=== PATIENT | female | born 1980 | race Caucasian/White ===

== ENCOUNTER → 2016-05-24 | Outpatient (CLI) | payer OTHER ==
[~2016-05-24] MED LIST: ADVIN25050 INH; BIOT1CAP8 PO; CETI10TA84 PO; CHOL1000 PO; CICL80AE INH; EPP3/2 IM; MOME100A INH; PRENTAB26 PO; TRAV0.00 OPB; VALA1TAB2 PO; VNTHFA/IN INH; WLLSR/150 PO
--- NOTE | 2016-05-24 08:45 | DIAGNOSTIC IMAGING REPORT ---
RIGHT KNEE 4 OR MORE CLINICAL HISTORY: RIGHT KNEE PAIN Right pain COMPARISON: None. DISCUSSION: The bones and joint spaces appear intact. There is no evidence of fracture, dislocation or bony disease. There is no evidence for soft tissue swelling. IMPRESSION: Negative study. Electronically signed by: Jn Cuevas M.D. 05/24/2016 8:44 AM Dictated Date/Time: 05/24/2016 8:43 AM
== END | disposition home or self-care (01) ==
LOC: C.RDSM 07:55
PROVIDERS: ATTEND Internal Medicine
DX: M25.561 Pain in right knee (principal)

== ENCOUNTER → 2016-06-08 | Outpatient (CLI) | payer OTHER ==
--- NOTE | 2016-06-08 12:10 | DIAGNOSTIC IMAGING REPORT ---
MRI right knee RIGHT LOWER EXT JOINT WITHOUT CLINICAL HISTORY: PAIN IN THE RIGHT KNEE Right TECHNIQUE: MRI multi axial acquisition COMPARISON STUDY: None FINDINGS: Signal characteristics the osseous structures are in general unremarkable. There is small amount of subchondral edema inferior aspect of the patella. There is a very small osteochondral defect measuring 3 mm mid lateral femoral condylar articular surface. There is a high-grade partial tear anterior cruciate ligament. Posterior cruciate ligament is intact. There is a small joint effusion. There are findings of moderate chondromalacia patella of the inferior patellar articulating surface. Medial and lateral patellar retinaculum are intact. Medial and lateral menisci are unremarkable in overall configuration. Bilaterally with structures are intact. IMPRESSION: 1. Mild chondromalacia patella 2. High-grade partial tear anterior cruciate ligament. 3. Small 3 mm osteochondral defect mid lateral femoral condyle. Electronically signed by: Jn Cuevas M.D. 06/08/2016 12:09 PM Dictated Date/Time: 06/08/2016 12:01 PM
== END | disposition home or self-care (01) ==
LOC: C.MRI 11:09
PROVIDERS: ATTEND Internal Medicine
DX: S83.511A Sprain of anterior cruciate ligament of right knee, initial encounter (principal); X58.XXXA Exposure to other specified factors, initial encounter

== ENCOUNTER → 2016-07-19 | Outpatient (CLI) | payer OTHER ==
[~2016-07-19] MED LIST changes: -ADVIN25050 INH; -PRENTAB26 PO; -WLLSR/150 PO
--- NOTE | 2016-07-19 09:00 | DIAGNOSTIC IMAGING REPORT ---
RIGHT FOOT 3 VIEWS CLINICAL HISTORY: Right foot pain. FINDINGS: 3 views of the right foot are compared to study dated 10/13/2015. The skeletal structures are osteopenic. There are postoperative changes from osteotomy in the distal fifth metatarsal head with a single cortical screw in place. A cortical screw is also present in the second metatarsal head. There is postoperative change from fusion at the first tarsometatarsal joint with [address] Bony fusion appears complete. No acute fracture is seen. Chronic posttraumatic deformity is again seen at the base of the first proximal phalanx. Mild cortical irregularity persists. The overlying soft tissues are within normal limits. IMPRESSION: 1. No acute bony abnormality is seen. 2. Chronic postoperative and posttraumatic change as above. Electronically signed by: Ozzie Jackson M.D. 07/19/2016 8:58 AM Dictated Date/Time: 07/19/2016 8:55 AM
== END | disposition home or self-care (01) ==
LOC: C.RDSM 14:31
PROVIDERS: ATTEND Physician Assistant
DX: Z96.9 Presence of functional implant, unspecified (principal)

== ENCOUNTER → 2016-08-17 | Day surgery (SDC) | payer OTHER ==
[2016-07-09 11:13] VITALS: Ht 167.6 cm; Wt 64.5 kg
[~2016-08-17] VITALS: Ht 167.6 cm; Wt 64.5 kg
[~2016-08-17] MED LIST changes: +ATROPINE SULFATE 0.1 MG/ML 5ML SYR IV PRN; +BUPIVACAINE/EPINEPHRINE 0.25% 1:200,000 30 ML VIAL ONE; +BUPIVACAINE/EPINEPHRINE 0.5% MPF 1:200,000 30 ML VIAL ONE; +CEFAZOLIN 2000 MG/60 ML D5W IV SCH; +CEFTRIAXONE SOD 1 GM VIAL ONE; +CEFTRIAXONE SOD 2 GM VIAL IV ONE; +DEXAMETHASONE SOD INJ 4 MG/ML VIAL ONE; +EpHEDrine SULFATE INJ 50 MG/ML AMP IV PRN; +FENTANYL CITRATE INJ 50 MCG/1 ML 2 ML VIAL ONE; +HYDROmorphone INJ 0.5 MG/0.5 ML SYR ONE; +KETOROLAC TROMETHAMINE 30 MG/ML VIAL IV. PRN; +LACTATED RINGER'S 1000ML 1,000 ML IV SCH; +LIDOCAINE HCL 1% MPF 2 ML VIAL ONE; +LIDOCAINE HCL 2% 2 ML VIAL (20MG/ML) ONE; +MIDAZOLAM HCL 1 MG/ML 2ML VIAL ONE; +ONDANSETRON INJ 2 MG/ML 2 ML VIAL IV PRN; +ONDANSETRON INJ 2 MG/ML 2 ML VIAL ONE; +OXYCODONE/ACETAMINOPHEN 5-325 TAB PO PRN; +PROPOFOL IV EMULSION 10 MG/ML 20 ML VIAL IV ONE; +SCOPOLAMINE 1.5 MG TDSY TD ONE; +SODIUM CHLORIDE 0.9% 1000ML 1,000 ML IV SCH; +TRAMADOL HCL 50 MG TAB PO PRN
--- NOTE | 2016-08-17 06:46 | History & Physical Bridge Note ---
H&P Re-Evaluation Bridge Note: I have examined the patient, reviewed the History & Physical and in the interval since the performance of the History & Physical I have noted the following changes of clinical significance: No changes noted
--- NOTE | 2016-08-17 06:48 | Discharge Instructions ---
Discharge Instructions Date of Service Aug 17, 2016. Visit Reason for Visit: Right Knee Acl Tear With Medial Meniscus Tear Discharge Discharge Diagnosis / Problem: same Discharge Goals Goal(s): Decrease discomfort, Improve function, Increase independence, Improve disease control Medications Stopped Medications Name(s): na Restart Stopped Medication(s): resume all meds as directed Activity Recommendations Activity Limitations: as noted below Lifting Limitations: until after follow-up appointment Exercise/Sports Limitations: until after follow-up appointment May Resume Sexual Activity: when tolerated Shower/Bathe: keep incision dry Driving or Machine Use: Weightbearing Status: Right weightbearing Anesthesia . Post Anesthesia Instructions: If you have had General Anesthesia or IV Sedation: * Do not drive today. * Resume driving when surgeon permits. * Do not make important decisions or sign legal documents today. * Call surgeon for: 1. Temperature elevations greater than 101 degrees F. 2. Uncontrollable pain. 3. Excessive bleeding. 4. Persistent nausea and vomiting. 5. Medication intolerance (nausea, vomiting or rash). * For nausea and vomiting use only clear liquids such as: tea, soda, bouillon until nausea subsides, then gradually increase diet as tolerated. * If you have any concerns or questions, call your surgeon's office. If physician is unavailable and it is an emergency, call 911 or go to the nearest emergency room. . Instructions / Follow-Up Instructions / Follow-Up The following instructions are a useful guide to questions you may have after your Anterior Cruciate Ligament Reconstruction surgery. If you have any questions contact the office at . ACTIVITY RECOMMENDATIONS: * Heavy manual labor is not permitted until 4-6 months after surgery. * Sports are not permitted until 6-9 months after surgery. * Return to activity is individualized. * DRIVING: Driving is not permitted until 3-4 weeks after surgery at a minimum. Please ask your doctor when it is safe to resume driving. If you have an automatic vehicle and your left leg has been operated on, then you may begin driving as soon as you are comfortable and can drive safely. * BATHING: You may shower or sponge-bathe immediately after surgery. The dressing will need to be covered with a plastic bag or plastic wrap until the dressing is changed on the fourth or fifth day after surgery. Once the dressing has been changed on the fourth or fifth day after surgery, you may shower and get the incision wet. * Wash with regular soap and water. * Do not bathe (submerge the incision), soak, swim or use a hot tub until the incision is completely healed over with normal skin and the doctor has given the OK to proceed. * There is no need to apply any ointments, powders or salves to your incision. * Do not apply alcohol or hydrogen peroxide directly to the incision. Diluted peroxide (50:50 mixture with sterile saline) may be used to clean dried blood from around the incision area. WORK/SCHOOL: * You may return to sedentary work or school when you are feeling comfortable. This is usually 3-7 days after surgery. * Expect increased discomfort with increased activity. Continue to elevate and ice the leg as much as possible. DIET: * Resume previous diet. MEDICATIONS: * You will have a prescription for pain medication and an anti-inflammatory medication after surgery. Use the pain pills for severe pain and the anti-inflammatory for less severe pain. * Once the pain pills have run out, try to use the anti-inflammatory. If this is not effective then contact the office for assistance. * The pain medication may cause nausea, constipation and sleepiness. You should see how they affect you before driving or similar activity. * The anti-inflammatory may cause stomach upset and bleeding. If this occurs, let your doctor know immediately . * Some patients may need blood clot prevention. This can be done with either a pill or a simple shot. Your doctor will advise you on when to begin these medications and how to take them. * Do not take aspirin or other anti-inflammatory products (i.e. Advil or Aleve ) if taking blood thinner medication. * Take a stool softener like Colace or a stimulant like Senokot to prevent constipation. SPECIAL CARE INSTRUCTIONS: The following instructions are a useful guide to questions you may have after your surgery. If you have any questions contact the office at . ICE: * You have the option of an ice cooler, gel packs or ice bags. * If you have an ice cooler, refer to the instructions for that device. * If you do not have an ice cooler, then you will need to use ice bags or gel packs. * Do not apply ice directly to the skin. * Use a thin dressing or stockinet between the skin and ice bag. * Apply ice for 20-30 minutes and repeat every 2-4 hours. This is especially important for the first 7-10 days after surgery. * Once the pain improves, use ice as needed. * The ice cooler can be used continuously. ELEVATION: * Keep your leg elevated at or above the level of your heart as much as possible. * Expect some increased discomfort and swelling if you are standing for any length of time. * When lying down, avoid placing anything under your knee. Rather, prop your leg up by placing several pillows under your heel or calf. DRESSING: * Your dressing will be changed at your first therapy appointment approximately 4-5 days after surgery. * Band-Aids, tape strips or gauze may be applied. You may then change your dressing daily. * Always wash your hands prior to touching the incision area. * Reapply dressing followed by the Hector wrap or Tubi-manager neonatal stockinet, ice cooling pad and then the brace. * Once the stitches are removed, you may leave the wound open to air or cover with an Hector Bandage or Tubi-manager neonatal stockinet. * If you have been given a white elastic stocking (SHRADDHA hose), wear as much as possible for the first 1-3 weeks depending on swelling. * Expect some bloody drainage for the first few days after surgery. * Leave the tape strips in place for 5-7 days. * Band-Aids and gauze may be changed daily. CRUTCHES: * You will need to use crutches after surgery. * Until your first doctor's appointment, you must use your crutches at all times when walking and should put no more than 50% of your normal weight on the surgical leg. * After your first doctor's appointment, you may gradually progress to full weight bearing and discontinue crutches as tolerated under the guidance of your therapist. * If you have had a microfracture procedure done, you may be advised to be non- weight bearing for up to 6 weeks. BRACE: * After surgery, you will be placed into a range of motion brace locked with your leg straight. This brace is to be worn at all times when walking (even with the crutches) and sleeping until your first doctors appointment. * The brace may be removed for therapy. * After your first therapy appointment, your therapist will open the brace to allow bending of the knee once your muscles are working better. * Until your first doctor's appointment, you should sleep with your brace locked with your knee fully straight. * If you have chosen to use a functional ACL brace then this brace will be supplied about 2-3 months after your surgery. During that time, you will attend therapy 2- 3 times per week. You will also need to do daily exercises for range of motion and strength as instructed. PROBLEMS/QUESTIONS: * If you have any problems such as severe pain, numbness, tingling or high fevers or if you have any questions, please contact the office at [phone]. * It is not uncommon to have some numbness and tingling after the surgery especially if you have had a nerve block done. This should gradually improve over the first 1- 2 days. If this persists longer or worsens then contact the office. FOLLOW UP VISIT: * If not already scheduled, please call the office at to schedule follow-up appointments for approximately 10 days and one month after surgery followed by monthly appointments thereafter. Diet Recommendations Recommended Home Diet: no limitations, resume previous diet Procedures Procedures Performed: see op note Pending Studies Studies pending at discharge: no Medical Emergencies . Who to Call and When: Medical Emergencies: If at any time you feel your situation is an emergency, please call 911 immediately. . Non-Emergent Contact Non-Emergency issues call your: Specialist Call Non-Emergent contact if: temperature is above 101.5 . . "Provider Documentation" section prepared by Huber Collier. .
--- NOTE | 2016-08-17 09:51 | [facility] Post Operative Brief Note ---
Immediate Operative Summary Operative Date Aug 17, 2016. Pre-Operative Diagnosis Right Knee ACL Tear with Medial Meniscus Tear Post-Operative Diagnosis Same Procedure(s) Performed Right Knee Arthroscopic Anterior Cruciate Ligament Reconstruction With Patellar Tendon Autograft, Debridement of the Lateral Femoral Condyle, Microfracture, Lateral Meniscus Repair, Loose Body Removal, Exam Under Anesthesia Surgeon Dr Collier Buckram Sewer Surgeon(s) Laura Covington PAZhanna Estimated Blood Loss Trace Findings see op note Fluids (cc crystalloids) 1200cc Specimens None Drains none Anesthesia LMA/block Complication(s) None Disposition Recovery Room / PACU
--- NOTE | 2016-08-17 10:27 | OPERATIVE REPORT ---
DATE OF OPERATION: 08/17/2016 SURGEON: Huber Collier MD METHODS AND PROCEDURES ANALYST: Franklin Jurado MD SECOND METHODS AND PROCEDURES ANALYST: Calixto Torres PA-C PREOPERATIVE DIAGNOSES: Anterior cruciate ligament insufficient right knee with lateral meniscal tear and articular disease. POSTOPERATIVE DIAGNOSES: Same. OPERATIONS PERFORMED: 1. Exam under anesthesia. 2. Diagnostic arthroscopy. 3. Arthroscopic lateral meniscus repair. 4. Arthroscopic chondroplasty and microfracture of the lateral femoral condyle. 5. Rasping of incomplete medial meniscus tear. 6. Endoscopic ACL reconstruction using central one-third patellar tendon autograft. PERIOPERATIVE SITUATION: Medically cleared female, very active with the knee giving way, recurrent pain, swelling, locking, and catching. Physical exam, x-ray and MRI scan consistent with the above diagnoses. DESCRIPTION OF PROCEDURE: The patient was identified, site verified, consent verified, and 2 grams of Ancef confirmed as being given. The knee was examined revealing clear asymmetry of the Hannah with an endpoint and a pivot glide. There was no effusion. There was slight valgus alignment to the knee. The collateral ligaments were stable. The knee was then prepped and draped in the usual routine fashion. Tourniquet inflated to 275 mmHg after exsanguination of limb with a rubber Esmarch bandage for a total of 90 minutes. The knee was then scoped. The ACL was intact at its distal half, but the proximal half was very incompetent, attached to the PCL on the femur, giving the Hannah positivity with an end point, but increased excursion. It was touched with a shaver and it was clearly fibrous tissue and disappeared. The stump of the ACL was then debrided. The medial meniscus posterior horn was stable. The anterior half had a crease incomplete on its femoral surface, but it was stable to probing. It was rasped. Medial articular surfaces were relatively healthy. The PCL was normal. The notch was trephine in shape and debrided. Lateral compartment had grade 4 thickness area of 1.5 cm squared area, which was debrided down to the bone and then microfractured with a 20 and 45 degree pig. The lateral meniscus had hypermobility. The hiatus was extended from trauma. It was debrided and rasped. There was a small posterior horn tip tear, which was debrided with the shaver. The meniscus was then repaired with 2 all-inside meniscal implants and FasT-Fix sutures. Once that was done, the meniscus was very stable. Once this was all completed, the patellar tendon was harvested through an anterior incision, fashioning bone blocks that were roughly 10 x 25 x 5 on both sides. They were tagged with TightRope on the patella and two #5 Ethibonds on the tibia. The graft was then placed in a sterile specimen container and the tunnels made on the tibia and femur using a point and shoot guide in the center of the tibial footprint, appropriately debrided and then on the femur, low lateral on the wall. It was able to go transtibially due to excellent positioning of the tibial tunnel, very medial and high on the tibia. This allowed excellent positioning. The tunnel socket was then made 25 mm. All bone debris was then removed. The graft was then passed and secured on the femur with a TightRope with excellent fixation and then on the tibia after cutting a trough with the knee flexed at 15 degrees, was stapled then with 2 Arthrex fadia, 8 mm. The graft tensioning was not excessive. The knee was able to hyperextend and solid control the Hannah, completely eliminated the anterior excursion on the Hannah, did not do a pivot shift based on the meniscus repair. The procedure was terminated. All instruments and fluid removed. Wound irrigated and injected with 0.5% Marcaine 25 mL throughout. The fascia closed with #1 Vicryl and the peritenon with 2-0 Vicryl. Bone trimming was used to graft the patellar harvest site, subcutaneous layer with 2-0 plain and the skin with a running subcuticular 2-0 Prolene and the portals with 4-0 nylon. The wound was then appropriately dressed. The patient transferred to recovery room in satisfactory condition having tolerated the procedure well. Deep venous thrombosis prophylaxis per protocol. She will be nonweightbearing for 6 weeks based on the microfracture. I attest to the content of the Intraoperative Record and any orders documented therein. Any exceptions are noted below. MTDD
--- NOTE | 2016-08-17 10:34 | OPERATIVE REPORT ---
DATE OF OPERATION: 08/17/2016 PREOPERATIVE DIAGNOSIS: Right knee anterior cruciate ligament tear with medial meniscal tear. 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 PROCEDURES: Right knee evaluation under anesthesia, arthroscopy, debridement of lateral femoral condyle, microfracture lateral femoral condyle, lateral meniscal repair, loose body removal, and ACL reconstruction using patellar tendon autograft. SURGEON: Huber Collier MD SOD STRIPPER: Franklin Jurado MD SECOND FLUID JET CUTTER OPERATOR: Calixto Torres PA-C HISTORY OF PRESENT ILLNESS: This 36-year-old white female presented to the office with complaints of right knee pain and instability. She injured her knee several years ago. She had been compensating up until recently. The patient elected to proceed with surgical intervention after being educated about potential risks and outcomes. Preoperative x-ray and MRI were obtained. DESCRIPTION OF PROCEDURE: The patient was administered a regional block and then taken to the operating room where she was given general anesthetic. She was prepped and draped in the usual sterile fashion. Please see Dr. Collier's operative report for specifics of the procedure. I was present for the entire case from initial patient positioning through final wound closure. Assistance was provided in arthroscopy, tissue retraction, hemostasis, graft harvest, graft placement, hardware placement, and final wound closure. The patient was taken to the recovery room in satisfactory condition. I attest to the content of the Intraoperative Record and any orders documented therein. Any exceptio ns are noted below.
[2016-08-17] MEDS: FENTANYL CITRATE INJ 50 MCG/1 ML 2 ML VIAL IV PRN ×3 (10:38→11:04)
[2016-08-17 11:45] VITALS: TEMP 37.8
--- NOTE | 2016-08-17 11:53 | Anesthesiology Progress Note ---
Anesthesia Post Op Note Date & Time Aug 17, 2016 at 11:53 Vital Signs Pain Intensity: 5 Vital Signs Past 12 Hours Date Time Temp Pulse Resp B/P Pulse Ox O2 Delivery O2 Flow Rate FiO2 08/17/16 11:21 127/93 08/17/16 11:18 82 14 08/17/16 11:18 81 14 98 08/17/16 11:16 37.4 90 16 127/93 98 Room Air 08/17/16 11:15 119/67 08/17/16 11:13 89 22 08/17/16 11:13 91 22 93 08/17/16 11:10 124/77 08/17/16 11:08 86 12 08/17/16 11:08 82 12 95 08/17/16 11:05 136/76 08/17/16 11:03 100 15 08/17/16 11:03 100 15 98 08/17/16 11:00 137/82 08/17/16 10:58 89 15 08/17/16 10:58 87 15 95 08/17/16 10:55 127/67 08/17/16 10:53 79 16 08/17/16 10:53 80 16 100 08/17/16 10:51 142/77 08/17/16 10:48 116 14 08/17/16 10:48 114 14 100 08/17/16 10:45 122/74 08/17/16 10:43 75 23 08/17/16 10:43 78 23 100 08/17/16 10:40 139/87 08/17/16 10:38 83 18 08/17/16 10:38 80 18 100 08/17/16 10:35 133/75 08/17/16 10:33 96 15 100 08/17/16 10:33 94 15 08/17/16 10:30 131/84 08/17/16 10:28 75 14 08/17/16 10:28 76 14 100 08/17/16 10:27 127/91 08/17/16 10:25 127/91 08/17/16 10:23 94 18 100 08/17/16 10:23 94 18 08/17/16 10:20 126/72 08/17/16 10:18 84 15 100 08/17/16 10:18 83 15 08/17/16 10:15 131/79 08/17/16 10:13 87 15 100 08/17/16 10:13 85 15 08/17/16 10:10 118/73 08/17/16 10:08 83 12 08/17/16 10:08 83 12 100 08/17/16 10:05 122/72 08/17/16 10:03 72 13 08/17/16 10:03 72 13 100 08/17/16 10:00 98/60 08/17/16 09:58 70 15 100 08/17/16 09:58 70 15 08/17/16 09:55 101/56 08/17/16 09:55 98/57 08/17/16 09:53 70 10 08/17/16 09:53 70 10 100 08/17/16 09:50 98/57 08/17/16 09:49 98/55 08/17/16 09:48 37.4 68 12 98/55 100 Diffusion Mask 6 08/17/16 09:48 68 16 100 08/17/16 09:48 69 16 08/17/16 07:42 93 08/17/16 07:42 90 0 99 08/17/16 07:37 101 08/17/16 07:37 103 34 100 08/17/16 07:36 134/77 08/17/16 07:35 111 08/17/16 07:35 114 21 100 08/17/16 07:31 134/83 08/17/16 07:30 85 11 100 08/17/16 07:30 92 08/17/16 07:25 74 18 101/63 100 08/17/16 07:25 75 08/17/16 07:20 93 08/17/16 07:20 92 13 135/78 100 08/17/16 07:18 131/80 08/17/16 07:18 92 12 131/80 100 Mask 5 08/17/16 07:15 90 0 08/17/16 07:10 86 0 08/17/16 07:05 80 0 08/17/16 07:00 77 0 08/17/16 06:55 77 0 08/17/16 06:28 36.6 89 16 122/89 99 Room Air Notes Mental Status: alert / awake / arousable, participated in evaluation Pt Amnestic to Procedure: Yes Nausea / Vomiting: adequately controlled Pain: adequately controlled Airway Patency, RR, SpO2: stable & adequate BP & HR: stable & adequate Hydration State: stable & adequate Anesthetic Complications: no major complications apparent
[2016-08-17 12:25] VITALS: BP 114/65; PULSE 80; O2SAT 97
== END | disposition home or self-care (01) ==
LOC: X.SURG 06:15
PROVIDERS: ATTEND Physical Medicine & Rehabilitation Sports Medicine
DX: M23.251 Derangement of posterior horn of lateral meniscus due to old tear or injury, right knee (principal); M23.51 Chronic instability of knee, right knee; J45.909 Unspecified asthma, uncomplicated; K90.0 Celiac disease; Z79.82 Long term (current) use of aspirin; Z82.49 Family history of ischemic heart disease and other diseases of the circulatory system

== ENCOUNTER → 2016-09-27 | Outpatient (CLI) | payer OTHER ==
[~2016-09-27] MED LIST changes: -ATROPINE SULFATE 0.1 MG/ML 5ML SYR IV PRN; -BUPIVACAINE/EPINEPHRINE 0.25% 1:200,000 30 ML VIAL ONE; -BUPIVACAINE/EPINEPHRINE 0.5% MPF 1:200,000 30 ML VIAL ONE; -CEFAZOLIN 2000 MG/60 ML D5W IV SCH; -CEFTRIAXONE SOD 1 GM VIAL ONE; -CEFTRIAXONE SOD 2 GM VIAL IV ONE; -DEXAMETHASONE SOD INJ 4 MG/ML VIAL ONE; -EpHEDrine SULFATE INJ 50 MG/ML AMP IV PRN; -FENTANYL CITRATE INJ 50 MCG/1 ML 2 ML VIAL ONE; -HYDROmorphone INJ 0.5 MG/0.5 ML SYR ONE; -KETOROLAC TROMETHAMINE 30 MG/ML VIAL IV. PRN; -LACTATED RINGER'S 1000ML 1,000 ML IV SCH; -LIDOCAINE HCL 1% MPF 2 ML VIAL ONE; -LIDOCAINE HCL 2% 2 ML VIAL (20MG/ML) ONE; -MIDAZOLAM HCL 1 MG/ML 2ML VIAL ONE; -ONDANSETRON INJ 2 MG/ML 2 ML VIAL IV PRN; -ONDANSETRON INJ 2 MG/ML 2 ML VIAL ONE; -OXYCODONE/ACETAMINOPHEN 5-325 TAB PO PRN; -PROPOFOL IV EMULSION 10 MG/ML 20 ML VIAL IV ONE; -SCOPOLAMINE 1.5 MG TDSY TD ONE; -SODIUM CHLORIDE 0.9% 1000ML 1,000 ML IV SCH; -TRAMADOL HCL 50 MG TAB PO PRN
== END | disposition home or self-care (01) ==
LOC: C.RDSM 09:30
PROVIDERS: ATTEND Physical Medicine & Rehabilitation Sports Medicine
DX: S83.511D Sprain of anterior cruciate ligament of right knee, subsequent encounter (principal); X58.XXXD Exposure to other specified factors, subsequent encounter; Z98.890 Other specified postprocedural states

== ENCOUNTER → 2017-07-08 | Outpatient (CLI) | payer OTHER | END | disposition home or self-care (01) | LOC: C.LAB1850 09:07 | PROVIDERS: ATTEND Nurse Practitioner | DX: S70.261A Insect bite (nonvenomous), right hip, initial encounter (principal); W57.XXXA Bitten or stung by nonvenomous insect and other nonvenomous arthropods, initial encounter ==

== ENCOUNTER 2020-10-03 22:38 | Observation (INO) ==
[2020-10-03] MEDS ORDERED: ONDANSETRON INJ 2 MG/ML 2 ML VIAL IV STA (22:57)
[2020-10-03] MEDS ORDERED: SODIUM CHLORIDE 0.9% 1000ML 1,000 ML IV ONE (22:57)
[2020-10-03] MEDS ORDERED: MoRPHine SULFATE 4 MG/ML 1 ML CARP\\VIAL IV STA (22:57)
[2020-10-03 23:37] LABS: Basophils # (auto) 0.06 K/uL (0-0.2); Basophils % (auto) 0.5 %; Eosinophils # (auto) 0.53 K/uL (0-0.5); Eosinophils % (auto) 4.7 %; Hemoglobin 13.4 g/dL (12.0-16.0); Immature Granulocytes # (auto) 0.02 K/uL (0.00-0.02); Immature Granulocytes % (auto) 0.2 %; Mean Corpuscular Hemoglobin 30.9 pg (25-34); Mean Corpuscular Hgb Conc 34.4 g/dL (32-36); Mean Corpuscular Volume 90.1 fL (80-100); Mean Platelet Volume 9.5 fL (7.4-10.4); Monocytes # (auto) 0.89 K/uL (0.11-0.59); Neutrophils # (auto) 6.88 K/uL (1.4-6.5); Neutrophils % (auto) 61.6 %; Platelet Count 310 K/uL (130-400); RDW Coefficient of Variation 13.2 % (11.5-14.5); RDW Standard Deviation 43.7 fL (36.4-46.3); Red Blood Count 4.33 M/uL (4.2-5.4); White Blood Count 11.18 K/uL (4.8-10.8)
[2020-10-03 23:48] LABS: INR 0.9 (0.9-1.1); Partial Thromboplastin Time 26.8 Seconds (21.0-31.0); Prothrombin Time 9.3 Seconds (9.0-12.0)
[2020-10-03 23:49] LABS: Appearance Urine Clear (Clear); Bilirubin Urine Negative (Negative); Blood Urine Negative (Negative); Color Urine Yellow; Glucose Urine UA Negative (Negative); Ketones Urine Negative (Negative); Leukocyte Esterase Urine Negative (Negative); Nitrite Urine Negative (Negative); Protein Urine Negative (Negative); Urobilinogen Urine Negative (Negative); pH Urine 5.5 (4.5-7.5)
[2020-10-04 00:05] LABS: Albumin Level 3.3 gm/dl (3.4-5.0); BUN Creatinine Ratio 16.7 (10-20); Bilirubin,Total 0.2 mg/dl (0.2-1); Calcium 8.5 mg/dl (8.5-10.1); Est GFR (African American) 125.3 ml/min; Est GFR (Non-African American) 108.1 ml/min; Potassium 4.1 mmol/L (3.5-5.1); Total Protein 7.1 gm/dl (6.4-8.2)
[2020-10-04] MEDS ORDERED: MoRPHine SULFATE 10 MG/ML CARP/VIAL IV STA (00:36)
[2020-10-04] MEDS ORDERED: HYDROmorphone INJ 1 MG/ML SYRINGE IV STA (00:57)
[2020-10-04] MEDS ORDERED: OPTIRAY 320 100ml IV ONE (01:38)
[2020-10-04] MEDS ORDERED: ONDANSETRON INJ 2 MG/ML 2 ML VIAL IV STA (02:01)
[2020-10-04] MEDS ORDERED: KETOROLAC TROMETHAMINE 15 MG/ML VIAL IV STA (02:01)
--- NOTE | 2020-10-04 02:11 | Emergency Department Note ---
History of Present Illness General Chief Complaint: Abdominal Pain Stated Complaint: ABDOMINAL PAIN Time Seen by Provider: 10/03/20 22:48 History of Present Illness Provider Complaint: abdominal pain Onset (ago): 4 hour(s) Pain Consistency: constant Location: RUQ Radiation: R flank Severity: moderate Maximum Pain Intensity: 5 Current Pain Intensity: 5 Quality: + stabbing, + aching, + sharp and + dull Relieved By: + nothing Exacerbated By: + eating Context: + possible food poisoning (Occurred while eating pizza); no foreign travel, no sick contacts and no recent antibiotic use Associated Symptoms: + nausea and + vomiting; no diarrhea, no fever, no chills, no constipation, no dysuria, no hematemesis, no hematochezia, no melena, no hematuria, no anorexia, no headache, no neck pain, no back pain, no chest pain, no weakness, no breathing difficulty and no numbness Home Medications Medication Instructions Recorded Confirmed Type cetirizine 10 mg tablet 10 mg PO QAM 12/06/18 10/04/20 History epinephrine 0.3 mg/0.3 mL 0.3 mg IM Q10M PRN #0.3 ml 12/06/18 10/04/20 Rx injection, auto-injector aspirin 81 mg PO QAM 04/02/20 10/04/20 History fluoxetine 20 mg PO QAM 04/02/20 10/04/20 History levonorgestrel 20 mcg/24 hours (6 1 device INTRAUTERINE CONT 05/15/20 10/04/20 History yrs) 52 mg intrauterine device montelukast 10 mg tablet 10 mg PO QAM #30 tab 06/12/20 10/04/20 Rx cholecalciferol (vitamin D3) 25 mcg PO QAM 10/04/20 10/04/20 History [Vitamin D3] travoprost [Travatan Z] 1 drp OPB PM 10/04/20 10/04/20 History Allergies Allergy/AdvReac Type Severity Reaction Status Date / Time latex Allergy Severe ITCHY Verified 10/04/20 01:24 THROAT, SKIN BLISTERS - NO ANAPHYLAXIS tree nut Allergy Severe Anaphylaxis Verified 10/04/20 01:24 wheat Allergy Mild Unknown Verified 10/04/20 01:24 nickel AdvReac Unknown Verified 10/04/20 01:24 CURRENT EVAL FOR MILK ALLERGY Allergy Unknown UNKNOWN, Uncoded 10/04/20 01:24 CURRENT EVALUATION FOR Past Med/Surg History Medical History Anxiety and depression NO FORMAL DX, MED FOR AND CONTROLLED Asthma WELL CONTROLLED Celiac disease Central retinal vein occlusion HX OF 2008 , FLUCTUATING EYE PRESSURES - NO CURRENT EYE DROPS FOR Environmental allergies Kidney stone (06/30/12) HX OF Lyme disease DX NOV 2019 Seasonal allergies Surgical History H/O dilation and curettage 05/05/20, With Mirena placement by Dr. Weston H/O knee surgery ACL, RIGHT History of endoscopy History of foot surgery RIGHT History of oral surgery ROOT CANAL Previous section X2 [place] teeth removed Family History Other Breast cancer Hypertension Myocardial infarction Social History Smoking Status: Never smoker Hx Alcohol Use: No Preferred Language: [place] Communication Ability: Effective Web Content & Social Media Manager Required: No Beliefs That Will Affect Care: None Current Living Situation: Spouse and Family Feels Safe at Home: Yes Assistive Devices: Contacts and Glasses Review of Systems A total of 10 systems reviewed and were otherwise negative Physical Exam Vital Signs: Vital Signs - 24 hr 10/03/20 22:43 10/03/20 23:48 10/04/20 00:34 Temperature 36.4 C L Temperature Source Temporal Artery Sc an Pulse Rate 98 H 88 Pulse Rate from Sp O2 Sensor 89 Respiratory Rate 18 16 Blood Pressure 154/93 H 128/65 Blood Pressure Ita n 113 86 Pulse Oximetry 98 100 98 Oxygen Delivery Me thod Room Air Room Air Room Air Sepsis Recent Feve r Within 48 Hours No Sepsis New/Unexpla ined Change in Men alyssia Status N/A Sepsis Action Take n by Nursing No Action Required 10/04/20 02:20 Temperature Temperature Source Pulse Rate 84 Pulse Rate from Sp O2 Sensor 82 Respiratory Rate 21 Blood Pressure 133/68 Blood Pressure Ita n 89 Pulse Oximetry 94 Oxygen Delivery Me thod Room Air Sepsis Recent Feve r Within 48 Hours Sepsis New/Unexpla ined Change in Men alyssia Status Sepsis Action Take n by Nursing Physical Exam: Physical Exam GENERAL: She is oriented to person, place, and time. She appears well-developed and well-nourished. She does not appear distressed. HENT: Exam performed. -Head: Normocephalic and atraumatic. -Right Ear: External ear normal. No mastoid tenderness. -Left Ear: External ear normal. No mastoid tenderness. -Mouth/Throat: The oropharynx is clear and moist. No trismus in the jaw. No dental abscesses or uvula swelling. No oropharyngeal exudate or tonsillar abscesses. EYES: Conjunctivae and EOM are normal. Pupils are equal, round, and reactive to light. Right eye exhibits no discharge. Left eye exhibits no discharge. No scleral icterus. NECK: Normal range of motion. Neck supple. No JVD present. No spinous process tenderness present. No carotid bruit present. No rigidity. No tracheal deviation and normal range of motion present. No Brudzinski's sign and no Kernig's sign noted. CV: Normal rate, regular rhythm, normal heart sounds and intact distal pulses. There is no peripheral edema. Palpable radial pulses bue. PULM/CHEST: Effort normal and breath sounds normal. No respiratory distress. No stridor. She has no wheezes. She has no rales. -Chest Wall: She exhibits no tenderness. ABD: The abdomen is soft. Bowel sounds are normal. She has no distension. No mass is present. There is tenderness to palpation of the right upper quadrant and epigastric area. Haddad sign positive. No pain on palpation of the right lower quadrant. No pain over McBurney's point. Rovsing negative. MUSC/SKEL: Normal range of motion. There is no peripheral edema, tenderness or deformity. LYMPH: No cervical adenopathy. NEURO: She is alert and oriented to person, place, and time. She has normal strength. No cranial nerve deficit or sensory deficit. Coordination and gait normal. GCS eye subscore is 4. GCS verbal subscore is 5. GCS motor subscore is 6. Cerebellar tests wnl. SKIN: Skin is warm and dry. She is not diaphoretic. PSYCH: She has a normal mood and affect. Behavior is normal. Judgment and thought content normal. Course Course 2247: The patient was evaluated in room C7. A complete history and physical exam was performed Cardiac monitoring: An order was placed for continuous cardiac monitoring. The monitor shows a rate of 70 with sinus rhythm 0105: Vital signs stable. Labs are within normal limits with exception of mildly elevated white blood cell count of 11.18. Liver function tests and lipase are within normal limits. Ultrasound viewed by me does appear to show gallstones however the formal read by the radiologist reports no gallstones. On reassessment the patient is still having pain on palpation of right upper quadrant. No pain on palpation right lower quadrant. Patient has required multiple doses of analgesia in the emergency department. We will plan on admitting the patient for GI and surgical evaluation. We will obtain CT scan of the abdomen also to make sure there is no abnormal right upper quadrant appendicitis or other reason for the patient's abdominal pain. 0234: Vital signs stable. Pain is better status post analgesia. CT shows normal appendix. [facility] for pain control and GI evaluation. Dr. Barrett is aware. Administered Medications Discontinued Medications Hydromorphone HCl (Hydromorphone Inj 1 Mg/Ml Syringe) 1 mg IV NOW STA Stop: 10/04/20 00:58 Last Admin: 10/04/20 01:04 Dose: 1 mg Documented by: [id number] Sodium Chloride (Nss 1000ml) 1,000 mls @ 999 mls/hr IV .Q1H1M ONE Stop: 10/03/20 23:57 Last Infusion: 10/04/20 00:39 Dose: 0 mls/hr Documented by: [id number] Admin: 10/03/20 23:37 Dose: 999 mls/hr Documented by: [id number] Ioversol (Optiray 320 100ml) 94 ml IV ONCE ONE Stop: 10/04/20 01:39 Last Admin: 10/04/20 01:38 Dose: 94 ml Documented by: [id number] Ketorolac Tromethamine (Ketorolac Tromethamine 15 Mg/Ml Vial) 15 mg IV NOW STA Stop: 10/04/20 02:02 Last Admin: 10/04/20 02:16 Dose: 15 mg Documented by: [id number] Morphine Sulfate (Morphine Sulfate 4 Mg/Ml 1 Ml Carp\Vial) 4 mg IV NOW STA Stop: 10/03/20 22:58 Last Admin: 10/03/20 23:37 Dose: 4 mg Documented by: [id number] Morphine Sulfate (Morphine Sulfate 10 Mg/Ml Carp/Vial) 6 mg IV NOW STA Stop: 10/04/20 00:37 Last Admin: 10/04/20 00:41 Dose: 6 mg Documented by: [id number] Ondansetron HCl (Ondansetron Inj 2 Mg/Ml 2 Ml Vial) 4 mg IV NOW STA Stop: 10/03/20 22:58 Last Admin: 10/03/20 23:37 Dose: 4 mg Documented by: [id number] Ondansetron HCl (Ondansetron Inj 2 Mg/Ml 2 Ml Vial) 4 mg IV NOW STA Stop: 10/04/20 02:02 Last Admin: 10/04/20 02:15 Dose: 4 mg Documented by: [id number] Medical Decision Making Laboratory Data Result diagrams: 10/03/20 23:18 10/03/20 23:18 Lab Results 10/03/20 10/03/20 10/03/20 Range/Units 23:18 23:18 23:18 WBC 11.18 H (4.8-10.8) K/uL RBC 4.33 (4.2-5.4) M/uL Hgb 13.4 (12.0-16.0) g/dL Hct 39.0 (37-47) % MCV 90.1 (80-100) fL MCH 30.9 (25-34) pg MCHC 34.4 (32-36) g/dL RDW Std Deviation 43.7 (36.4-46.3) fL RDW Coeff of Pranav 13.2 (11.5-14.5) % Plt Count 310 (130-400) K/uL MPV 9.5 (7.4-10.4) fL Immature Gran % (Auto) 0.2 % Neut % (Auto) 61.6 % Lymph % (Auto) 25.0 % [place] % (Auto) 8.0 % Eos % (Auto) 4.7 % Baso % (Auto) 0.5 % Neut # (Auto) 6.88 H (1.4-6.5) K/uL Lymph # (Auto) 2.80 (1.2-3.4) K/uL [place] # (Auto) 0.89 H (0.11-0.59) K/uL Eos # (Auto) 0.53 H (0-0.5) K/uL Baso # (Auto) 0.06 (0-0.2) K/uL Immature Gran # (Auto) 0.02 (0.00-0.02) K/uL PT 9.3 (9.0-12.0) Seconds INR 0.9 (0.9-1.1) APTT 26.8 (21.0-31.0) Seconds PTT Ratio 1.0 Sodium 141 (136-145) mmol/L Potassium 4.1 (3.5-5.1) mmol/L Chloride 110 H (98-107) mmol/L Carbon Dioxide 25 (21-32) mmol/L Anion Gap 6.0 (3-11) BUN 12 (7-18) mg/dl Creatinine 0.69 (0.6-1.2) mg/dl Est Cr Clr Drug Dosing 111.0 ml/min Est GFR ( Amer) 125.3 ml/min Est GFR (Non-Af Amer) 108.1 ml/min BUN/Creatinine Ratio 16.7 (10-20) Glucose 88 (70-99) mg/dl Calcium 8.5 (8.5-10.1) mg/dl Total Bilirubin 0.2 (0.2-1) mg/dl Direct Bilirubin (0-0.2) mg/dl AST 21 (15-37) U/L ALT 26 (12-78) U/L Alkaline Phosphatase 68 (45-117) U/L Total Protein 7.1 (6.4-8.2) gm/dl Albumin 3.3 L (3.4-5.0) gm/dl Lipase 125 (73-393) U/L Specimen Hemolysis Urine Color Urine Appearance (Clear) Urine pH (4.5-7.5) Ur Specific [place] (1.000-1.030) Urine Protein (Negative) Urine Glucose (UA) (Negative) Urine Ketones (Negative) Urine Blood (Negative) Urine Nitrite (Negative) Urine Bilirubin (Negative) Urine Urobilinogen (Negative) Ur Leukocyte Esterase (Negative) POC Ur Test (NEG) COVID-19 Eval Order SARS-CoV-2 (PCR) (Negative) 10/03/20 10/03/20 10/04/20 Range/Units 23:28 23:28 01:08 WBC (4.8-10.8) K/uL RBC (4.2-5.4) M/uL Hgb (12.0-16.0) g/dL Hct (37-47) % MCV (80-100) fL MCH (25-34) pg MCHC (32-36) g/dL RDW Std Deviation (36.4-46.3) fL RDW Coeff of Pranav (11.5-14.5) % Plt Count (130-400) K/uL MPV (7.4-10.4) fL Immature Gran % (Auto) % Neut % (Auto) % Lymph % (Auto) % [place] % (Auto) % Eos % (Auto) % Baso % (Auto) % Neut # (Auto) (1.4-6.5) K/uL Lymph # (Auto) (1.2-3.4) K/uL [place] # (Auto) (0.11-0.59) K/uL Eos # (Auto) (0-0.5) K/uL Baso # (Auto) (0-0.2) K/uL Immature Gran # (Auto) (0.00-0.02) K/uL PT (9.0-12.0) Seconds INR (0.9-1.1) APTT (21.0-31.0) Seconds PTT Ratio Sodium (136-145) mmol/L Potassium (3.5-5.1) mmol/L Chloride (98-107) mmol/L Carbon Dioxide (21-32) mmol/L Anion Gap (3-11) BUN (7-18) mg/dl Creatinine (0.6-1.2) mg/dl Est Cr Clr Drug Dosing ml/min Est GFR ( Amer) ml/min Est GFR (Non-Af Amer) ml/min BUN/Creatinine Ratio (10-20) Glucose (70-99) mg/dl Calcium (8.5-10.1) mg/dl Total Bilirubin (0.2-1) mg/dl Direct Bilirubin (0-0.2) mg/dl AST (15-37) U/L ALT (12-78) U/L Alkaline Phosphatase (45-117) U/L Total Protein (6.4-8.2) gm/dl Albumin (3.4-5.0) gm/dl Lipase (73-393) U/L Specimen Hemolysis Urine Color Yellow Urine Appearance Clear (Clear) Urine pH 5.5 (4.5-7.5) Ur Specific [place] 1.020 (1.000-1.030) Urine Protein Negative (Negative) Urine Glucose (UA) Negative (Negative) Urine Ketones Negative (Negative) Urine Blood Negative (Negative) Urine Nitrite Negative (Negative) Urine Bilirubin Negative (Negative) Urine Urobilinogen Negative (Negative) Ur Leukocyte Esterase Negative (Negative) POC Ur Test NEG (NEG) COVID-19 Eval Order Covid19 at [facility] SARS-CoV-2 (PCR) (Negative) 10/04/20 Range/Units 01:08 WBC (4.8-10.8) K/uL RBC (4.2-5.4) M/uL Hgb (12.0-16.0) g/dL Hct (37-47) % MCV (80-100) fL MCH (25-34) pg MCHC (32-36) g/dL RDW Std Deviation (36.4-46.3) fL RDW Coeff of Pranav (11.5-14.5) % Plt Count (130-400) K/uL MPV (7.4-10.4) fL Immature Gran % (Auto) % Neut % (Auto) % Lymph % (Auto) % [place] % (Auto) % Eos % (Auto) % Baso % (Auto) % Neut # (Auto) (1.4-6.5) K/uL Lymph # (Auto) (1.2-3.4) K/uL [place] # (Auto) (0.11-0.59) K/uL Eos # (Auto) (0-0.5) K/uL Baso # (Auto) (0-0.2) K/uL Immature Gran # (Auto) (0.00-0.02) K/uL PT (9.0-12.0) Seconds INR (0.9-1.1) APTT (21.0-31.0) Seconds PTT Ratio Sodium (136-145) mmol/L Potassium (3.5-5.1) mmol/L Chloride (98-107) mmol/L Carbon Dioxide (21-32) mmol/L Anion Gap (3-11) BUN (7-18) mg/dl Creatinine (0.6-1.2) mg/dl Est Cr Clr Drug Dosing ml/min Est GFR ( Amer) ml/min Est GFR (Non-Af Amer) ml/min BUN/Creatinine Ratio (10-20) Glucose (70-99) mg/dl Calcium (8.5-10.1) mg/dl Total Bilirubin (0.2-1) mg/dl Direct Bilirubin (0-0.2) mg/dl AST (15-37) U/L ALT (12-78) U/L Alkaline Phosphatase (45-117) U/L Total Protein (6.4-8.2) gm/dl Albumin (3.4-5.0) gm/dl Lipase (73-393) U/L Specimen Hemolysis Urine Color Urine Appearance (Clear) Urine pH (4.5-7.5) Ur Specific [place] (1.000-1.030) Urine Protein (Negative) Urine Glucose (UA) (Negative) Urine Ketones (Negative) Urine Blood (Negative) Urine Nitrite (Negative) Urine Bilirubin (Negative) Urine Urobilinogen (Negative) Ur Leukocyte Esterase (Negative) POC Ur Test (NEG) COVID-19 Eval Order SARS-CoV-2 (PCR) NEGATIVE (Negative) Imaging Data My Impression: Chest x-ray negative. Airway clear. No pneumothorax. No consolidation. No cardiomegaly or cephalization.. No free air under the diaphragm. No fractures of the skeletal structures. No air-fluid levels. Radiologist's Impression: Preliminary Findings Only See Final Report For Complete Findings US RUQ: The gallbladder is partially distended with a normal thin wall, no stones, no surrounding fluid. The common bile duct is nondilated measuring 4 mm. The liver measures 15.7 cm with normal echotexture. The portal vein is patent with normal direction of flow. The right kidney measures 12.2 cm with normal appearance and no hydronephrosis. The visualized portion of the pancreas is unremarkable. Radiologist: Mason Winslow MD Study ready at 00:31 and initial results transmitted at 00:47 Preliminary Findings Only See Final Report For Complete Findings CT ABDOMEN & PELVIS With Contrast: Comparison to June 30, 2012. The appendix is normal. There is a moderate amount of stool in the cecum and right colon measuring 5-7 cm suggesting constipation. No other dilated bowel loops are present. No acute inflammatory changes are seen involving the bowel. The liver, gallbladder, pancreas, spleen, adrenal glands, and kidneys appear within normal limits. There is an IUD within the uterus. Possible 4 cm left ovarian cyst. No free fluid is seen in the abdomen or pelvis. Mild to moderate degenerative changes in the lower lumbar spine. No acute fracture or subluxation. Radiologist: Mason Winslow MD Study ready at 01:43 and initial results transmitted at 02:18 ECG Data Indication: abdominal pain Rate (beats per minute): 66 Rhythm: normal sinus Findings: no ST depression, no ST elevation and no prolonged QT [facility] Narrative 2248: The patient was evaluated in room C7. A complete history and physical exam was performed Cardiac monitoring: An order was placed for continuous cardiac monitoring. The monitor shows a rate of 70 with sinus rhythm 0105: Vital signs stable. Labs are within normal limits with exception of mildly elevated white blood cell count of 11.18. Liver function tests and lipase are within normal limits. Ultrasound viewed by me does appear to show gallstones however the formal read by the radiologist reports no gallstones. On reassessment the patient is still having pain on palpation of right upper quadrant. No pain on palpation right lower quadrant. Patient has required multiple doses of analgesia in the emergency department. We will plan on admitti ng the patient for GI and surgical evaluation. We will obtain CT scan of the abdomen also to make sure there is no abnormal right upper quadrant appendicitis or other reason for the patient's abdominal pain. 0234: Vital signs stable. Pain is better status post analgesia. CT shows normal appendix. Patient will be admitted to the [facility] hospitalist team for pain control and GI evaluation. Dr. Barrett is aware. Impression & Plan Abdominal pain Discharge Plan Visit Data Chief Complaint: Abdominal Pain Stated Complaint: ABDOMINAL PAIN ED Provider: Dennis White Discharge Problem: Abdominal pain Patient Disposition: Being Evaluated by Hospitalist Forms Stand Alone Forms: My [facility] Prescriptions Prescriptions: No Action Mirena 20 mcg/24 hours (6 yrs) 52 mg intrauterine device 1 device intrauterine CONT RF: 0 montelukast 10 mg tablet 10 mg PO QAM Qty: 30 RF: 5 epinephrine 0.3 mg/0.3 mL auto-injector 0.3 mg IM Q10M PRN (Reason: bronchodilation) Qty: 0.3 RF: 0 cetirizine [Zyrtec] 10 mg tablet 10 mg PO QAM RF: 0 aspirin 81 mg Tablet,Delayed Release (/Ec) 81 mg PO QAM RF: 0 fluoxetine 20 mg Capsule 20 mg PO QAM RF: 0 cholecalciferol (vitamin D3) [Vitamin D3] 25 mcg (1,000 unit) Tablet 25 mcg PO QAM RF: 0 travoprost [Travatan Z] 0.004 % Drops 1 drp OPB PM RF: 0 Referrals Referrals: Angelika Hughes DO [Primary Care Provider] - Discharge Problem: Abdominal pain Qualifiers: Abdominal location: right upper quadrant Qualified Code(s): R10.11 - Right upper quadrant pain
--- NOTE | 2020-10-04 02:53 | History & Physical Report ---
Date of Service October 04, 2020 Assessment & Plan (1) Abdominal pain: Intractable right upper quadrant and epigastric abdominal pain- Examination concerning for possible gallbladder disease. CT scan of abdomen pelvis and ultrasound right upper quadrant nonrevealing NPO Famotidine 20 mg IV every 12 hours NSS + KCl 20 mEq at 80 mils per hour Zofran 4 mg IV every 6 hours as needed Acetaminophen with as milligrams IV every 8 hours as needed mild pain or fever Dilaudid 0.5 mg IV every 3 hours as needed severe pain Order HIDA scan Ceftriaxone 1 g IV daily Consult gastroenterology Case Present on Admission?: Yes History of Present Illness Chief Complaint: The patient presents to the emergency department with acute onset of right upper quadrant and epigastric abdominal pain after eating 2 pieces of homemade pizza earlier this evening Primary Care Provider: Angelika Hughes DO The patient is a 40-year-old female with a past medical history including celiac disease, blindness in 1 eye, glaucoma, and allergic rhinitis. As noted above, she developed acute onset of right upper quadrant and epigastric abdominal discomfort after eating 2 slices of homemade pizza earlier this evening. Work-up in the emergency department included an ultrasound right upper quadrant which revealed the following: The gallbladder is partially distended with a normal thin wall, no stones, no surrounding fluid., Bile duct is nondilated measuring 4 mm. The liver measures 15.7 cm with normal echotexture. CT scan of abdomen and pelvis with contrast revealed the following: The appendix is normal. There is a moderate amount of stool in the cecum and right colon measuring 5-7 cm suggesting constipation. No other dilated bowel loops are present. No acute inflammatory changes are seen involving the bowel. The liver, gallbladder, pancreas, spleen, adrenal glands and kidneys appear within normal limits. There is a possible 4 cm left ovarian cyst. Laboratories reveal the following: CBC showed a WBC of 11.18 with left shift. Chemistry was normal except for albumin of 3.3. Urinalysis was negative. Urine test was negative. COVID-19 test was negative. Allergies Allergy/AdvReac Type Severity Reaction Status Date / Time latex Allergy Severe ITCHY Verified 10/04/20 01:24 THROAT, SKIN BLISTERS - NO ANAPHYLAXIS tree nut Allergy Severe Anaphylaxis Verified 10/04/20 01:24 wheat Allergy Mild Unknown Verified 10/04/20 01:24 nickel AdvReac Unknown Verified 10/04/20 01:24 CURRENT EVAL FOR MILK ALLERGY Allergy Unknown UNKNOWN, Uncoded 10/04/20 01:24 CURRENT EVALUATION FOR Home Medications Medication Instructions Recorded Confirmed Type cetirizine 10 mg tablet 10 mg PO QAM 12/06/18 10/04/20 History epinephrine 0.3 mg/0.3 mL 0.3 mg IM Q10M PRN #0.3 ml 12/06/18 10/04/20 Rx injection, auto-injector aspirin 81 mg PO QAM 04/02/20 10/04/20 History fluoxetine 20 mg PO QAM 04/02/20 10/04/20 History levonorgestrel 20 mcg/24 hours (6 1 device INTRAUTERINE CONT 05/15/20 10/04/20 History yrs) 52 mg intrauterine device montelukast 10 mg tablet 10 mg PO QAM #30 tab 06/12/20 10/04/20 Rx cholecalciferol (vitamin D3) 25 mcg PO QAM 10/04/20 10/04/20 History [Vitamin D3] travoprost [Travatan Z] 1 drp OPB PM 10/04/20 10/04/20 History Past Med/Surg History Medical History Anxiety and depression NO FORMAL DX, MED FOR AND CONTROLLED Asthma WELL CONTROLLED Celiac disease Central retinal vein occlusion HX OF 2008 , FLUCTUATING EYE PRESSURES - NO CURRENT EYE DROPS FOR Environmental allergies Kidney stone (06/30/12) HX OF Lyme disease DX NOV 2019 Seasonal allergies Surgical History H/O dilation and curettage 05/05/20, With Mirena placement by Dr. Weston H/O knee surgery ACL, RIGHT History of endoscopy History of foot surgery RIGHT History of oral surgery ROOT CANAL Previous section X2 [place] teeth removed Family History Other Breast cancer Hypertension Myocardial infarction Social History Smoking Status: Never smoker Second Hand Exposure: No; Do You Dip or Chew Tobacco: No; Hx Alcohol Use: Yes Hx Substance Use: No Preferred Language: Thai Communication Ability: Effective Director Public Service Required: No Beliefs That Will Affect Care: None Current Living Situation: Spouse Current Living Situation Comment: HOME Other Information That Helps Us Care for You: No Feels Safe at Home: Yes Assistive Devices: Glasses Review of Systems Review of Systems: The patient denies chest pain, palpitations, shortness of breath, dyspnea on exertion, cough, lower extremity swelling, sore throat, fevers, chills, sweats, nausea, vomiting, diarrhea blood in urine or stool, dysuria, urinary frequency or urgency, lightheadedness, dizziness, headache, rash, abnormal bruising or bleeding, imbalance, focal or generalized weakness, numbness or tingling in arms or legs, or night sweats. The review of systems is otherwise negative other than for that already noted above, and at least 10 systems have been reviewed. Physical Exam Physical Exam: The patient is awake, alert and oriented 3, well developed and well nourished, normocephalic and atraumatic, lying in bed and in mild to moderate distress secondary to abdominal pain HEENT--PERRL, EOMI, mucous membranes and oropharynx dry. Neck--supple. No JVD. No bruits. Heart--normal S1 and S2. No murmurs, rubs or gallops. Lungs--clear bilaterally, no respiratory distress, no accessory muscle use. Abdomen--normal bowel sounds and soft. Tender epigastrium and right upper quadrant Extremities--no cyanosis or clubbing. No edema. Dermatologic--normal Neurologic--cranial nerves II through XII grossly intact. Rheumatologic--normal range of motion. Psychiatric--normal affect. Results & Data Results & Data ([facility]) Vital Signs (Past 12 Hours) Vital Signs Temp Pulse Resp BP Pulse Ox 10/04/20 02:20 84 21 133/68 94 10/04/20 00:34 88 16 128/65 98 10/03/20 23:48 100 10/03/20 22:43 97.5 F L 98 H 18 154/93 H 98 Laboratory Results Laboratory Results WBC 11.18 K/uL (4.8-10.8) H 10/03/20 23:18 RBC 4.33 M/uL (4.2-5.4) 10/03/20 23:18 Hgb 13.4 g/dL (12.0-16.0) 10/03/20 23:18 Hct 39.0 % (37-47) 10/03/20 23:18 MCV 90.1 fL (80-100) 10/03/20 23:18 MCH 30.9 pg (25-34) 10/03/20 23:18 MCHC 34.4 g/dL (32-36) 10/03/20 23:18 RDW Std Deviation 43.7 fL (36.4-46.3) 10/03/20 23:18 RDW Coeff of Pranav 13.2 % (11.5-14.5) 10/03/20 23:18 Plt Count 310 K/uL (130-400) 10/03/20 23:18 MPV 9.5 fL (7.4-10.4) 10/03/20 23:18 Immature Gran % (Auto) 0.2 % 10/03/20 23:18 Neut % (Auto) 61.6 % 10/03/20 23:18 Lymph % (Auto) 25.0 % 10/03/20 23:18 [place] % (Auto) 8.0 % 10/03/20 23:18 Eos % (Auto) 4.7 % 10/03/20 23:18 Baso % (Auto) 0.5 % 10/03/20 23:18 Neut # (Auto) 6.88 K/uL (1.4-6.5) H 10/03/20 23:18 Lymph # (Auto) 2.80 K/uL (1.2-3.4) 10/03/20 23:18 [place] # (Auto) 0.89 K/uL (0.11-0.59) H 10/03/20 23:18 Eos # (Auto) 0.53 K/uL (0-0.5) H 10/03/20 23:18 Baso # (Auto) 0.06 K/uL (0-0.2) 10/03/20 23:18 Immature Gran # (Auto) 0.02 K/uL (0.00-0.02) 10/03/20 23:18 PT 9.3 Seconds (9.0-12.0) 10/03/20 23:18 INR 0.9 (0.9-1.1) 10/03/20 23:18 APTT 26.8 Seconds (21.0-31.0) 10/03/20 23:18 PTT Ratio 1.0 10/03/20 23:18 Sodium 141 mmol/L (136-145) 10/03/20 23:18 Potassium 4.1 mmol/L (3.5-5.1) 10/03/20 23:18 Chloride 110 mmol/L (98-107) H 10/03/20 23:18 Carbon Dioxide 25 mmol/L (21-32) 10/03/20 23:18 Anion Gap 6.0 (3-11) 10/03/20 23:18 BUN 12 mg/dl (7-18) 10/03/20 23:18 Creatinine 0.69 mg/dl (0.6-1.2) 10/03/20 23:18 Est Cr Clr Drug Dosing 111.0 ml/min 10/03/20 23:18 Est GFR ( Amer) 125.3 ml/min 10/03/20 23:18 Est GFR (Non-Af Amer) 108.1 ml/min 10/03/20 23:18 BUN/Creatinine Ratio 16.7 (10-20) 10/03/20 23:18 Glucose 88 mg/dl (70-99) 10/03/20 23:18 Calcium 8.5 mg/dl (8.5-10.1) 10/03/20 23:18 Total Bilirubin 0.2 mg/dl (0.2-1) 10/03/20 23:18 Direct Bilirubin mg/dl (0-0.2) 10/03/20 23:18 AST 21 U/L (15-37) 10/03/20 23:18 ALT 26 U/L (12-78) 10/03/20 23:18 Alkaline Phosphatase 68 U/L (45-117) 10/03/20 23:18 Total Protein 7.1 gm/dl (6.4-8.2) 10/03/20 23:18 Albumin 3.3 gm/dl (3.4-5.0) L 10/03/20 23:18 Lipase 125 U/L (73-393) 10/03/20 23:18 Specimen Hemolysis 10/03/20 23:18 Urine Color Yellow 10/03/20 23:28 Urine Appearance Clear (Clear) 10/03/20 23:28 Urine pH 5.5 (4.5-7.5) 10/03/20 23:28 Ur Specific [place] 1.020 (1.000-1.030) 10/03/20 23:28 Urine Protein Negative (Negative) 10/03/20 23:28 Urine Glucose (UA) Negative (Negative) 10/03/20 23:28 Urine Ketones Negative (Negative) 10/03/20 23:28 Urine Blood Negative (Negative) 10/03/20 23:28 Urine Nitrite Negative (Negative) 10/03/20 23:28 Urine Bilirubin Negative (Negative) 10/03/20 23:28 Urine Urobilinogen Negative (Negative) 10/03/20 23:28 Ur Leukocyte Esterase Negative (Negative) 10/03/20 23:28 POC Ur Test NEG (NEG) 10/03/20 23:28 COVID-19 Eval Order Covid19 at [facility] 10/04/20 01:08 SARS-CoV-2 (PCR) NEGATIVE (Negative) 10/04/20 01:08 Diagnostic Findings [facility] Patient: RUFUS KENNEY (Female) : 78 Status: ER Date: 10/04/20 00:17 Room #: History: ruq pain Slices: 37 Priors: Tech: Lesley Gaines @ [phone] Exams: US RUQ Contrast: Accession Numbers: [id number] Preliminary Findings Only See Final Report For Complete Findings US RUQ: The gallbladder is partially distended with a normal thin wall, no stones, no surrounding fluid. The common bile duct is nondilated measuring 4 mm. The liver measures 15.7 cm with normal echotexture. The portal vein is patent with normal direction of flow. The right kidney measures 12.2 cm with normal appearance and no hydronephrosis. The visualized portion of the pancreas is unremarkable. Radiologist: Mason Winslow MD Study ready at 00:31 and initial results transmitted at 00:47 *This report constitutes a preliminary interpretation only. Non-acute findings felt to be unrelated to the clinical presentation may not be discussed in this report. The study will be interpreted and a final report will be generated by the local Radiologist the following shift. To reach the hospital radiology department call [phone]. If a discrepancy is found between the preliminary and final interpretations of this study, please notify us via our Client Portal at [email or web address], under QA Exams.You can also fax this report with a description of the discrepancy, or include the final report, to our daytime fax number [phone].If faxing, please indicate the severity of discrepancy using one of the following categories: [ ] 1 - Agree/Informational [ ] 2 - Unlikely to Affect Management [ ] 3 - Possible Eventual Change of Management [ ] 4 - Probable Immediate Change of Management For all other patient related information, please fax us at [phone]. [id number] Code Status & VTE Plan Code Status Full code VTE Prophylaxis Plan VTE Prophylaxis will be ordered: Yes PG Care Time/CCT Total # of Minutes Spent Total Time Spent with Patient: Total time spent is greater than 50% in coordination of care (as documented) at patient's floor/unit and/or counseling patient: Coding Level of Care Code 03392 Initial Inpt Care Lvl 2 Diagnoses Abdominal pain R10.11 Abdominal location: right upper quadrant (1) Abdominal pain Abdominal location: right upper quadrant Qualified Code(s): R10.11 - Right upper quadrant pain
[2020-10-04] MEDS ORDERED: bisacodyL 10 MG SUPP PR PRN (03:45)
[2020-10-04] MEDS ORDERED: ACETAMINOPHEN 1,000 MG/100 ML VIAL IV PRN (03:45)
[2020-10-04] MEDS: HYDROmorphone INJ 0.5 MG/0.5 ML SYR IV PRN ×4 (04:15→12:08)
[2020-10-04] MEDS: ONDANSETRON INJ 2 MG/ML 2 ML VIAL IV PRN ×2 (04:16→11:05)
[2020-10-04] MEDS: cefTRIAXone SODIUM 1,000 MG in DEXTROSE 5% 50 ML IV SCH (04:43)
[2020-10-04] MEDS: FAMOTIDINE 20 MG in SYRINGE 3 ML IV SCH ×2 (04:44→17:43)
[2020-10-04] MEDS: NSS + 20MEQ KCL 20 MEQ/1,000 ML BAG IV SCH ×2 (04:44→17:32)
[2020-10-04] MEDS ORDERED: KETOROLAC TROMETHAMINE 15 MG/ML VIAL IV PRN (05:32)
[2020-10-04 06:01] LABS: Mean Corpuscular Hgb Conc 33.6 g/dL (32-36); Mean Platelet Volume 9.5 fL (7.4-10.4); Platelet Count 267 K/uL (130-400)
[2020-10-04 06:24] LABS: Albumin Level 3.2 gm/dl (3.4-5.0); BUN Creatinine Ratio 13.8 (10-20); Calcium 7.9 mg/dl (8.5-10.1); Creatinine Clr Calc Pharmacy 127.4 ml/min; Est GFR (African American) 131.2 ml/min; Est GFR (Non-African American) 113.2 ml/min; Potassium 3.9 mmol/L (3.5-5.1)
[2020-10-04 06:28] LABS: Albumin Globulin Ratio 0.9 (0.9-2); Bilirubin,Total 0.4 mg/dl (0.2-1); Globulin 3.4 gm/dl (2.5-4.0); Total Protein 6.6 gm/dl (6.4-8.2)
[2020-10-04 06:52] LABS: Basophils # (auto) 0.03 K/uL (0-0.2); Basophils % (auto) 0.3 %; Eosinophils # (auto) 0.46 K/uL (0-0.5); Eosinophils % (auto) 4.4 %; Hematocrit (blood only) 38.4 % (37-47); Hemoglobin 12.9 g/dL (12.0-16.0); Immature Granulocytes # (auto) 0.02 K/uL (0.00-0.02); Immature Granulocytes % (auto) 0.2 %; Lymphocytes # (auto) 2.93 K/uL (1.2-3.4); Lymphocytes % (auto) 28.1 %; Mean Corpuscular Hemoglobin 30.6 pg (25-34); Monocytes # (auto) 0.73 K/uL (0.11-0.59); Neutrophils # (auto) 6.27 K/uL (1.4-6.5); RDW Coefficient of Variation 13.4 % (11.5-14.5); RDW Standard Deviation 44.2 fL (36.4-46.3); Red Blood Count 4.22 M/uL (4.2-5.4); White Blood Count 10.44 K/uL (4.8-10.8)
[2020-10-04] MEDS: FLUoxetine HCL 20 MG CAP PO SCH (07:09)
--- NOTE | 2020-10-04 07:43 | CT Scan Report ---
CT abd pelvis IV con only CLINICAL HISTORY: RUQ pain COMPARISON STUDY: Biliary ultrasound dated 12/03/2020 TECHNIQUE: Patient was scanned in a dynamic helical fashion during intravenous administration of 94 c c of Optiray 320 A dose lowering technique was utilized adhering to the principles of ALARA. CT DOSE: 343.41 mGy.cm FINDINGS: Lower chest: There are minor right middle lobe atelectatic changes. There is a small hiatal hernia. T here is borderline distal esophageal wall thickening Liver: The contrast-enhanced liver is normal in size, contour, and attenuation. There is no intrahepa tic biliary ductal dilatation. The hepatic veins and portal veins are patent. Gallbladder: Unremarkable. Spleen: Normal in size and attenuation. Pancreas: Unremarkable. Adrenal glands: Unremarkable. Kidneys: There is symmetric renal cortical enhancement. The kidneys are normal in size without hydron ephrosis. Bowel: There are no transition zones to indicate bowel obstruction. The appendix appears normal. Ther e is no evidence of acute diverticulitis. There is a moderate fecal colonic load. Peritoneum: There is trace free pelvic fluid, likely physiologic. There is no free intraperitoneal ai r. There is a tiny fat-containing umbilical hernia. Vasculature: The abdominal aorta is normal in course and caliber. Adenopathy: None. Pelvic viscera: An IUD is visualized within the uterus. There are left ovarian cyst/follicles. These are likely physiologic. Skeletal structures: No destructive osseous lesions are seen. IMPRESSION: 1. No evidence of bowel obstruction. No evidence of free air 2. Normal appendix. No evidence of acute diverticulitis. 3. Left ovarian cyst/follicles, likely physiologic. 4. Small hiatal hernia with borderline distal esophageal wall thickening 5. Moderate fecal colonic load. ACT 112: Negative or not required by law. Electronically signed by: Alfonso Radford M.D. 10/04/2020 7:41 AM
--- NOTE | 2020-10-04 08:37 | Ultrasound Report ---
US gallbladder CLINICAL HISTORY: Right upper quadrant pain. Evaluate for acute cholecystitis. COMPARISON STUDY: CT of the abdomen and pelvis June 30, 2012. FINDINGS: The liver is sonographically normal. There is no biliary ductal dilatation. The common bile duct measures 4 mm in caliber. The pancreas is within normal limits by sonography. The gallbladder i s normal. There are no gallstones. There is no right hydronephrosis. IMPRESSION: Unremarkable right upper quadrant ultrasound. ACT 112: Negative or not required by law. Electronically signed by: Andrea Baker M.D. 10/04/2020 8:36 AM
--- NOTE | 2020-10-04 08:37 | XRay Report ---
XR abdomen 2V w PA chest CLINICAL HISTORY: epigastric ruq pain COMPARISON STUDY: No previous studies for comparison. FINDINGS: Erect chest reveals no free intraperitoneal air. There is no focal pulmonary consolidation. Erect and supine views the abdomen reveal moderate colonic stool. There are no transition zones ailyn linden bowel obstruction. An IUD is visualized. IMPRESSION: 1. No evidence of bowel obstruction. No evidence of free air 2. Moderate fecal colonic load. ACT 112: Negative or not required by law. Electronically signed by: Alfonso Radford M.D. 10/04/2020 8:36 AM
[2020-10-04] MEDS: ACETAMINOPHEN 1,000 MG/100 ML VIAL IV SCH ×2 (09:04→17:34)
--- NOTE | 2020-10-04 10:12 | Hospitalist Progress Note ---
Date of Service October 04, 2020 Assessment & Plan (1) Fever: Given high prevalence, as well as her being outside quite a bit/a lot of exposure to animals, [facility] that [facility] Lyme screen IgM is a true positive, and I suspect that probably her fevers stopped because o f the prompt initiation of doxycycline, but given that she still feels myalgias, given that she had chills and sweats this morning, we will continue doxycycline. Of note, there has been a small increase in prevalence of babesiosis in the area as wellshould the situation continue to appear consistent with a tickborne illness and she not improve on the doxycycline, then we may need to consider fur ther work-up and/or empiric treatment for babesiosis. Given her GI distresswe will continue treatment IV for now, and if she needs ongoing treatment after discharge, likely will need to use an alternative agent besides doxycycline. Await peripheral smear as well. (2) Abdominal pain: Initially harboring significant concern this was her gallbladderbased on her bedside presentation and physical exam. Of note her labs and imaging are very reassuring in this respect, but her bedside presentation was concerning enough that I discussed case with surgery who was kind enough to promptly see her. They have a fairly low suspicion of anything biliary, felt that a HIDA scan would be good to definitively rule things out, but certainly did not feel that urgent intervention is warranted. It is also quite possible that her upper GI distress is esophagitis/gastritis (possibly related to the doxycycline), and given the fecal load noted on her CAT scan, there may also be a degree of colonic pain from constipation. -Aggressive acid suppression and antiemetic regimen -Is aggressive of the bowel regimen as she can tolerate -GI evalquestion if she would benefit from further diagnostics like an EGD -Pain control/supportive care Admission and Anticipated Discharge Date Admission Date: October 04, 2020 Subjective Still having significant right-sided abdominal pain, epigastric/substernal pain, and nausea throughout the day. She notes that earlier in the week she had a fever about 102, and general myalgia. Given the propensity for her/her family to have tickborne illnesses, they suspected something along the lines of Lyme, had doxycycline at home, and started treatment. She has taken approximately 4 doses of that. She does note that at least 1 pill did not seem like it went down very well. Generally over the course of the week while she was not having any significant/new GI symptoms (she has a degree of chronic GI symptoms related to celiac) she just did not feel well with a degree of malaise, may be a mild degree of myalgias, although she did not have any further fevers. Last night whenever she was about to eat dinner, she took about 2 bites of pizza and almost immediately had fairly severe abdominal pain nausea and vomiting. Since then she has had very intense upper abdominal/right sided abdominal pain that radiates to the right side of her back midthoracic. She has had ongoing nausea without vomiting but some times where she has felt very intense nausea/nearly vomiting. She has not had any further fevers, but she notes around 5 AM she had rigor type chills followed by drenching sweat. She notes regular bowel movements. Review of Systems Review of Systems: All systems reviewed & are unremarkable except as noted in HPI & below Physical Exam Physical Exam: General she is awake and alert pleasant but does appear to be in a significant amount of pain on my first visit, moderate amount of pain and a significant amount of nausea on my second visit, and is at times quite tearful. HEENT normocephalic atraumatic mucous membranes are moist. Breathing unlabored no accessory muscle use good effort. Abdomen is fairly firm right upper quadrant with a degree of voluntary guarding, no notable rebound, to a lesser degree she has epigastric tenderness as well, less voluntary guarding. The rest of her abdomen is fairly benign, although she does note that palpation mid abdomen does cause a little bit of referral of right-sided pain. M usculoskeletal shows her to have right-sided mid thoracic paraspinal hypertonicity and tenderness. Neuro shows no focal deficits. Skin shows no rashes. Results & Data Results & [facility] ([facility]) Vital Signs (Past 12 Hours) Vital Signs Temp Pulse Pulse Resp BP BP Pulse Ox 10/04/20 07:48 98.1 F 76 16 125/78 94 10/04/20 03:52 98.4 F 16 133/86 96 10/04/20 03:30 68 12 111/54 L 94 10/04/20 03:00 72 12 110/46 L 93 10/04/20 02:20 84 21 133/68 94 10/04/20 00:34 88 16 128/65 98 10/03/20 23:48 100 10/03/20 22:43 97.5 F L 98 H 18 154/93 H 98 PG Care Time/CCT Total # of Minutes Spent Total Time Spent with Patient: Total time spent is greater than 50% in coordination of care (as documented) at patient's floor/unit and/or counseling patient: Coding Level of Care Code None Diagnoses Fever R50.9 Abdominal pain R10.11 Abdominal location: right upper quadrant (1) Abdominal pain Abdominal location: right upper quadrant Qualified Code(s): R10.11 - Right upper quadrant pain
[2020-10-04 11:15] LABS: Procalcitonin < 0.05 ng/ml (0-0.5)
[2020-10-04 11:20] LABS: Lyme Ab IgG w/WB Rflx Negative (Negative)
[2020-10-04 11:29] LABS: Lyme Ab IgM w/WB Rflx Positive (Negative)
[2020-10-04] MEDS: DOXYCYCLINE HYCLATE 100 MG in DEXTROSE 5% 100 ML IV SCH ×2 (12:08→23:12)
[2020-10-04] MEDS ORDERED: PROCHLORPERAZINE 10 MG in SYRINGE 8 ML IV PRN (12:41)
[2020-10-04] MEDS ORDERED: ONDANSETRON INJ 2 MG/ML 2 ML VIAL IV PRN (12:54)
[2020-10-04] MEDS: ONDANSETRON INJ 2 MG/ML 2 ML VIAL IV SCH ×2 (12:59→17:43)
[2020-10-04] MEDS ORDERED: ALUMINUM/MAGNESIUM/SIMETH (MAALOX MAX) 30 ML UDC PO STA (13:01)
[2020-10-04] MEDS: PANTOprazole 40 MG TAB PO SCH ×2 (13:47→20:41)
[2020-10-04] MEDS: POLYETHYLENE (MIRALAX) 17 GM PACK PO SCH ×2 (13:47→20:41)
--- NOTE | 2020-10-04 14:49 | Surgery Consultation ---
Date of Consultation October 04, 2020 Assessment & Plan (1) Abdominal pain: The etiology of her discomfort is unclear. It began seemingly in the retrosternal area may be related to a GI source. Await GI consultation. Consider EGD. Also would await HIDA scan to rule out gallbladder as the elijah ology although the symptom progression is not completely consistent with gallbladder disease. There is no evidence of acute peritonitis at the present time. I do not feel there is any need for immediate surgical intervention. Continue analgesics and work-up. History of Present Illness Reason for Consultation: Abdominal pain Requesting Physician: Jose Zacarias DO Attending Physician: Jose Zacarias DO History of Present Illness I have been asked by Dr. Zacarias to see this 40-year-old female who presented to the emergency room with a complaint of severe lower thoracic and upper abdominal pain located on the right side. The patient states that she had developed a fever measured at least as high as 102.2 towards the end of last week. She took some doxycycline thinking this may have been the beginnings of Lyme's disease. She is unsure as to whether or not one of the doxycycline tablets was completely swallowed and completely traversed the esophagus. She de veloped a burning-like and pressure-like discomfort located in the retrosternal area. Over the last few days the discomfort has become much more severe. There is a severe pressure-like discomfort with occasional sharp pain located in the upper abdomen and in the flank and right shoulder area. The patient states that it feels like a very deep visceral pain. It does not feel like it is involving the abdominal wall. She has never had discomfort like this in the past. She had nausea and vomiting. Her bowels have been moving without melena or hematochezia and she has not had diarrhea or constipation. Allergies Allergy/AdvReac Type Severity Reaction Status Date / Time latex Allergy Severe ITCHY Verified 10/04/20 01:24 THROAT, SKIN BLISTERS - NO ANAPHYLAXIS tree nut Allergy Severe Anaphylaxis Verified 10/04/20 01:24 wheat Allergy Mild Unknown Verified 10/04/20 01:24 nickel AdvReac Unknown Verified 10/04/20 01:24 CURRENT EVAL FOR MILK ALLERGY Allergy Unknown UNKNOWN, Uncoded 10/04/20 01:24 CURRENT EVALUATION FOR Home Medications Medication Instructions Recorded Confirmed Type cetirizine 10 mg tablet 10 mg PO QAM 12/06/18 10/04/20 History epinephrine 0.3 mg/0.3 mL 0.3 mg IM Q10M PRN #0.3 ml 12/06/18 10/04/20 Rx injection, auto-injector aspirin 81 mg PO QAM 04/02/20 10/04/20 History fluoxetine 20 mg PO QAM 04/02/20 10/04/20 History levonorgestrel 20 mcg/24 hours (6 1 device INTRAUTERINE CONT 05/15/20 10/04/20 History yrs) 52 mg intrauterine device montelukast 10 mg tablet 10 mg PO QAM #30 tab 06/12/20 10/04/20 Rx cholecalciferol (vitamin D3) 25 mcg PO QAM 10/04/20 10/04/20 History [Vitamin D3] travoprost [Travatan Z] 1 drp OPB PM 10/04/20 10/04/20 History Patient History Medical History Anxiety and depression NO FORMAL DX, MED FOR AND CONTROLLED Asthma WELL CONTROLLED Celiac disease Central retinal vein occlusion HX OF 2008 , FLUCTUATING EYE PRESSURES - NO CURRENT EYE DROPS FOR Environmental allergies Kidney stone (06/30/12) HX OF Lyme disease DX NOV 2019 Seasonal allergies Surgical History H/O dilation and curettage 05/05/20, With Mirena placement by Dr. 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 Beliefs That Will Affect Care: None Current Living Situation: Spouse Current Living Situation Comment: HOME Feels Safe at Home: Yes Assistive Devices: Walker Physical Exam Constitutional: no acute distress Neck: trachea midline Respiratory: normal respiratory effort, lungs clear to auscultation Cardiovascular: Rate/Rhythm: regular rate and regular rhythm Gastrointestinal (Abdomen): Inspection/Auscultation: normal bowel sounds; abdomen not distended Percussion/Palpation: + abdomen tender and abdomen soft; no abdominal mass There is tenderness in the right CVA region and along the inferior aspect of the costal margin laterally Lymphatic: no cervical lymphadenopathy Results & Data ([facility]) Vital Signs (Past 12 Hours) Vital Signs Temp Pulse Pulse Resp BP BP Pulse Ox 10/04/20 07:48 36.7 C 76 16 125/78 94 10/04/20 03:52 36.9 C 16 133/86 96 10/04/20 03:30 68 12 111/54 L 94 10/04/20 03:00 72 12 110/46 L 93 Laboratory Results 10/04/20 10/04/20 10/04/20 Range/Units 10:24 10:24 10:24 WBC (4.8-10.8) K/uL RBC (4.2-5.4) M/uL Hgb (12.0-16.0) g/dL Hct (37-47) % MCV (80-100) fL MCH (25-34) pg MCHC (32-36) g/dL RDW Std Deviation (36.4-46.3) fL RDW Coeff of Pranav (11.5-14.5) % Plt Count (130-400) K/uL MPV (7.4-10.4) fL Immature Gran % (Auto) % Neut % (Auto) % Lymph % (Auto) % [place] % (Auto) % Eos % (Auto) % Baso % (Auto) % Neut # (Auto) (1.4-6.5) K/uL Lymph # (Auto) (1.2-3.4) K/uL [place] # (Auto) (0.11-0.59) K/uL Eos # (Auto) (0-0.5) K/uL Baso # (Auto) (0-0.2) K/uL Immature Gran # (Auto) (0.00-0.02) K/uL PT (9.0-12.0) Seconds INR (0.9-1.1) APTT (21.0-31.0) Seconds PTT Ratio Sodium (136-145) mmol/L Potassium (3.5-5.1) mmol/L Chloride (98-107) mmol/L Carbon Dioxide (21-32) mmol/L Anion Gap (3-11) BUN (7-18) mg/dl Creatinine (0.6-1.2) mg/dl Est Cr Clr Drug Dosing ml/min Est GFR ( Amer) ml/min Est GFR (Non-Af Amer) ml/min BUN/Creatinine Ratio (10-20) Glucose (70-99) mg/dl Calcium (8.5-10.1) mg/dl Total Bilirubin (0.2-1) mg/dl Direct Bilirubin (0-0.2) mg/dl AST (15-37) U/L ALT (12-78) U/L Alkaline Phosphatase (45-117) U/L C-Reactive Protein 0.58 H (0-0.29) mg/dl Total Protein (6.4-8.2) gm/dl Albumin (3.4-5.0) gm/dl Globulin (2.5-4.0) gm/dl Albumin/Globulin Ratio (0.9-2) Lipase (73-393) U/L Procalcitonin < 0.05 (0-0.5) ng/ml Specimen Hemolysis Urine Color Urine Appearance (Clear) Urine pH (4.5-7.5) Ur Specific [place] (1.000-1.030) Urine Protein (Negative) Urine Glucose (UA) (Negative) Urine Ketones (Negative) Urine Blood (Negative) Urine Nitrite (Negative) Urine Bilirubin (Negative) Urine Urobilinogen (Negative) Ur Leukocyte Esterase (Negative) POC Ur Test (NEG) Anaplasma Smear Lyme Disease IgG Ab Negative (Negative) Lyme IgG (Western Blot) Pending Lyme IgG 18 kDa Band Pending Lyme IgG 23 kDa Band Pending Lyme IgG 28 kDa Band Pending Lyme IgG 30 kDa Band Pending Lyme IgG 39 kDa Band Pending Lyme IgG 41 kDa Band Pending Lyme IgG 45 kDa Band Pending Lyme IgG 58 kDa Band Pending Lyme IgG 66 kDa Band Pending Lyme IgG 93 kDa Band Pending Lyme IgM Ab (WB) Pending Lyme Disease IgM Ab Positive A (Negative) Lyme IgM 23 kDa Band Pending Lyme IgM 39 kDa Band Pending Lyme IgM 41 kDa Band Pending COVID-19 Eval Order SARS-CoV-2 (PCR) (Negative) 10/04/20 10/04/20 10/04/20 Range/Units 05:43 05:43 01:08 WBC 10.44 (4.8-10.8) K/uL RBC 4.22 (4.2-5.4) M/uL Hgb 12.9 (12.0-16.0) g/dL Hct 38.4 (37-47) % MCV 91.0 (80-100) fL MCH 30.6 (25-34) pg MCHC 33.6 (32-36) g/dL RDW Std Deviation 44.2 (36.4-46.3) fL RDW Coeff of Pranav 13.4 (11.5-14.5) % Plt Count 267 (130-400) K/uL MPV 9.5 (7.4-10.4) fL Immature Gran % (Auto) 0.2 % Neut % (Auto) 60.0 % Lymph % (Auto) 28.1 % [place] % (Auto) 7.0 % Eos % (Auto) 4.4 % Baso % (Auto) 0.3 % Neut # (Auto) 6.27 (1.4-6.5) K/uL Lymph # (Auto) 2.93 (1.2-3.4) K/uL [place] # (Auto) 0.73 H (0.11-0.59) K/uL Eos # (Auto) 0.46 (0-0.5) K/uL Baso # (Auto) 0.03 (0-0.2) K/uL Immature Gran # (Auto) 0.02 (0.00-0.02) K/uL PT (9.0-12.0) Seconds INR (0.9-1.1) APTT (21.0-31.0) Seconds PTT Ratio Sodium 142 (136-145) mmol/L Potassium 3.9 (3.5-5.1) mmol/L Chloride 112 H (98-107) mmol/L Carbon Dioxide 25 (21-32) mmol/L Anion Gap 5.0 (3-11) BUN 8 (7-18) mg/dl Creatinine 0.60 (0.6-1.2) mg/dl Est Cr Clr Drug Dosing 127.4 ml/min Est GFR ( Amer) 131.2 ml/min Est GFR (Non-Af Amer) 113.2 ml/min BUN/Creatinine Ratio 13.8 (10-20) Glucose 101 H (70-99) mg/dl Calcium 7.9 L (8.5-10.1) mg/dl Total Bilirubin 0.4 (0.2-1) mg/dl Direct Bilirubin (0-0.2) mg/dl AST 12 L (15-37) U/L ALT 22 (12-78) U/L Alkaline Phosphatase 67 (45-117) U/L C-Reactive Protein (0-0.29) mg/dl Total Protein 6.6 (6.4-8.2) gm/dl Albumin 3.2 L (3.4-5.0) gm/dl Globulin 3.4 (2.5-4.0) gm/dl Albumin/Globulin Ratio 0.9 (0.9-2) Lipase (73-393) U/L Procalcitonin (0-0.5) ng/ml Specimen Hemolysis Urine Color Urine Appearance (Clear) Urine pH (4.5-7.5) Ur Specific [place] (1.000-1.030) Urine Protein (Negative) Urine Glucose (UA) (Negative) Urine Ketones (Negative) Urine Blood (Negative) Urine Nitrite (Negative) Urine Bilirubin (Negative) Urine Urobilinogen (Negative) Ur Leukocyte Esterase (Negative) POC Ur Test (NEG) Anaplasma Smear See Comment Lyme Disease IgG Ab (Negative) Lyme IgG (Western Blot) Lyme IgG 18 kDa Band Lyme IgG 23 kDa Band Lyme IgG 28 kDa Band Lyme IgG 30 kDa Band Lyme IgG 39 kDa Band Lyme IgG 41 kDa Band Lyme IgG 45 kDa Band Lyme IgG 58 kDa Band Lyme IgG 66 kDa Band Lyme IgG 93 kDa Band Lyme IgM Ab (WB) Lyme Disease IgM Ab (Negative) Lyme IgM 23 kDa Band Lyme IgM 39 kDa Band Lyme IgM 41 kDa Band COVID-19 Eval Order SARS-CoV-2 (PCR) NEGATIVE (Negative) 10/04/20 10/03/20 10/03/20 Range/Units 01:08 23:28 23:28 WBC (4.8-10.8) K/uL RBC (4.2-5.4) M/uL Hgb (12.0-16.0) g/dL Hct (37-47) % MCV (80-100) fL MCH (25-34) pg MCHC (32-36) g/dL RDW Std Deviation (36.4-46.3) fL RDW Coeff of Pranav (11.5-14.5) % Plt Count (130-400) K/uL MPV (7.4-10.4) fL Immature Gran % (Auto) % Neut % (Auto) % Lymph % (Auto) % [place] % (Auto) % Eos % (Auto) % Baso % (Auto) % Neut # (Auto) (1.4-6.5) K/uL Lymph # (Auto) (1.2-3.4) K/uL [place] # (Auto) (0.11-0.59) K/uL Eos # (Auto) (0-0.5) K/uL Baso # (Auto) (0-0.2) K/uL Immature Gran # (Auto) (0.00-0.02) K/uL PT (9.0-12.0) Seconds INR (0.9-1.1) APTT (21.0-31.0) Seconds PTT Ratio Sodium (136-145) mmol/L Potassium (3.5-5.1) mmol/L Chloride (98-107) mmol/L Carbon Dioxide (21-32) mmol/L Anion Gap (3-11) BUN (7-18) mg/dl Creatinine (0.6-1.2) mg/dl Est Cr Clr Drug Dosing ml/min Est GFR ( Amer) ml/min Est GFR (Non-Af Amer) ml/min BUN/Creatinine Ratio (10-20) Glucose (70-99) mg/dl Calcium (8.5-10.1) mg/dl Total Bilirubin (0.2-1) mg/dl Direct Bilirubin (0-0.2) mg/dl AST (15-37) U/L ALT (12-78) U/L Alkaline Phosphatase (45-117) U/L C-Reactive Protein (0-0.29) mg/dl Total Protein (6.4-8.2) gm/dl Albumin (3.4-5.0) gm/dl Globulin (2.5-4.0) gm/dl Albumin/Globulin Ratio (0.9-2) Lipase (73-393) U/L Procalcitonin (0-0.5) ng/ml Specimen Hemolysis Urine Color Yellow Urine Appearance Clear (Clear) Urine pH 5.5 (4.5-7.5) Ur Specific [place] 1.020 (1.000-1.030) Urine Protein Negative (Negative) Urine Glucose (UA) Negative (Negative) Urine Ketones Negative (Negative) Urine Blood Negative (Negative) Urine Nitrite Negative (Negative) Urine Bilirubin Negative (Negative) Urine Urobilinogen Negative (Negative) Ur Leukocyte Esterase Negative (Negative) POC Ur Test NEG (NEG) Anaplasma Smear Lyme Disease IgG Ab (Negative) Lyme IgG (Western Blot) Lyme IgG 18 kDa Band Lyme IgG 23 kDa Band Lyme IgG 28 kDa Band Lyme IgG 30 kDa Band Lyme IgG 39 kDa Band Lyme IgG 41 kDa Band Lyme IgG 45 kDa Band Lyme IgG 58 kDa Band Lyme IgG 66 kDa Band Lyme IgG 93 kDa Band Lyme IgM Ab (WB) Lyme Disease IgM Ab (Negative) Lyme IgM 23 kDa Band Lyme IgM 39 kDa Band Lyme IgM 41 kDa Band COVID-19 Eval Order Covid19 at [facility] SARS-CoV-2 (PCR) (Negative) 10/03/20 10/03/20 10/03/20 Range/Units 23:18 23:18 23:18 WBC 11.18 H (4.8-10.8) K/uL RBC 4.33 (4.2-5.4) M/uL Hgb 13.4 (12.0-16.0) g/dL Hct 39.0 (37-47) % MCV 90.1 (80-100) fL MCH 30.9 (25-34) pg MCHC 34.4 (32-36) g/dL RDW Std Deviation 43.7 (36.4-46.3) fL RDW Coeff of Pranav 13.2 (11.5-14.5) % Plt Count 310 (130-400) K/uL MPV 9.5 (7.4-10.4) fL Immature Gran % (Auto) 0.2 % Neut % (Auto) 61.6 % Lymph % (Auto) 25.0 % [place] % (Auto) 8.0 % Eos % (Auto) 4.7 % Baso % (Auto) 0.5 % Neut # (Auto) 6.88 H (1.4-6.5) K/uL Lymph # (Auto) 2.80 (1.2-3.4) K/uL [place] # (Auto) 0.89 H (0.11-0.59) K/uL Eos # (Auto) 0.53 H (0-0.5) K/uL Baso # (Auto) 0.06 (0-0.2) K/uL Immature Gran # (Auto) 0.02 (0.00-0.02) K/uL PT 9.3 (9.0-12.0) Seconds INR 0.9 (0.9-1.1) APTT 26.8 (21.0-31.0) Seconds PTT Ratio 1.0 Sodium 141 (136-145) mmol/L Potassium 4.1 (3.5-5.1) mmol/L Chloride 110 H (98-107) mmol/L Carbon Dioxide 25 (21-32) mmol/L Anion Gap 6.0 (3-11) BUN 12 (7-18) mg/dl Creatinine 0.69 (0.6-1.2) mg/dl Est Cr Clr Drug Dosing 111.0 ml/min Est GFR ( Amer) 125.3 ml/min Est GFR (Non-Af Amer) 108.1 ml/min BUN/Creatinine Ratio 16.7 (10-20) Glucose 88 (70-99) mg/dl Calcium 8.5 (8.5-10.1) mg/dl Total Bilirubin 0.2 (0.2-1) mg/dl Direct Bilirubin (0-0.2) mg/dl AST 21 (15-37) U/L ALT 26 (12-78) U/L Alkaline Phosphatase 68 (45-117) U/L C-Reactive Protein (0-0.29) mg/dl Total Protein 7.1 (6.4-8.2) gm/dl Albumin 3.3 L (3.4-5.0) gm/dl Globulin (2.5-4.0) gm/dl Albumin/Globulin Ratio (0.9-2) Lipase 125 (73-393) U/L Procalcitonin (0-0.5) ng/ml Specimen Hemolysis Urine Color Urine Appearance (Clear) Urine pH (4.5-7.5) Ur Specific [place] (1.000-1.030) Urine Protein (Negative) Urine Glucose (UA) (Negative) Urine Ketones (Negative) Urine Blood (Negative) Urine Nitrite (Negative) Urine Bilirubin (Negative) Urine Urobilinogen (Negative) Ur Leukocyte Esterase (Negative) POC Ur Test (NEG) Anaplasma Smear Lyme Disease IgG Ab (Negative) Lyme IgG (Western Blot) Lyme IgG 18 kDa Band Lyme IgG 23 kDa Band Lyme IgG 28 kDa Band Lyme IgG 30 kDa Band Lyme IgG 39 kDa Band Lyme IgG 41 kDa Band Lyme IgG 45 kDa Band Lyme IgG 58 kDa Band Lyme IgG 66 kDa Band Lyme IgG 93 kDa Band Lyme IgM Ab (WB) Lyme Disease IgM Ab (Negative) Lyme IgM 23 kDa Band Lyme IgM 39 kDa Band Lyme IgM 41 kDa Band COVID-19 Eval Order SARS-CoV-2 (PCR) (Negative) Diagnostic Findings US gallbladder CLINICAL HISTORY: Right upper quadrant pain. Evaluate for acute cholecystitis. COMPARISON STUDY: CT of the abdomen and pelvis June 30, 2012. FINDINGS: The liver is sonographically normal. There is no biliary ductal dilatation. The common bile duct measures 4 mm in caliber. The pancreas is within normal limits by sonography. The gallbladder is normal. There are no gallstones. There is no right hydronephrosis. IMPRESSION: Unremarkable right upper quadrant ultrasound. CT abd pelvis IV con only CLINICAL HISTORY: RUQ pain COMPARISON STUDY: Biliary ultrasound dated 12/03/2020 TECHNIQUE: Patient was scanned in a dynamic helical fashion during intravenous administration of 94 cc of Optiray 320 A dose lowering technique was utilized adhering to the principles of ALARA. CT DOSE: 343.41 mGy.cm FINDINGS: Lower chest: There are minor right middle lobe atelectatic changes. There is a small hiatal hernia. There is borderline distal esophageal wall thickening Liver: The contrast-enhanced liver is normal in size, contour, and attenuation. There is no intrahepatic biliary ductal dilatation. The hepatic veins and portal veins are patent. Gallbladder: Unremarkable. Spleen: Normal in size and attenuation. Pancreas: Unremarkable. Adrenal glands: Unremarkable. Kidneys: There is symmetric renal cortical enhancement. The kidneys are normal in size without hydronephrosis. Bowel: There are no transition zones to indicate bowel obstruction. The appendix appears normal. There is no evidence of acute diverticulitis. There is a moderate fecal colonic load. Peritoneum: There is trace free pelvic fluid, likely physiologic. There is no free intraperitoneal air. There is a tiny fat-containing umbilical hernia. Vasculature: The abdominal aorta is normal in course and caliber. Adenopathy: None. Pelvic viscera: An IUD is visualized within the uterus. There are left ovarian cyst/follicles. These are likely physiologic. Skeletal structures: No destructive osseous lesions are seen. IMPRESSION: 1. No evidence of bowel obstruction. No evidence of free air 2. Normal appendix. No evidence of acute diverticulitis. 3. Left ovarian cyst/follicles, likely physiologic. 4. Small hiatal hernia with borderline distal esophageal wall thickening 5. Moderate fecal colonic load. (1) Abdominal pain Abdominal location: right upper quadrant Qualified Code(s): R10.11 - Right upper quadrant pain
--- NOTE | 2020-10-04 15:00 | Electrocardiogram Report ---
Test Reason : Blood Pressure : / mmHG Vent. Rate : 066 BPM Atrial Rate : 066 BPM P-R Int : 134 ms QRS Dur : 084 ms QT Int : 424 ms P-R-T Axes : 066 075 054 degrees QTc Int : 444 ms Normal sinus rhythm Normal ECG No previous ECGs available Confirmed by Pako Haile ([id number]) on 10/04/2020 3:00:19 PM Referred By: REFERRED SELF Confirmed By:Pako Haile
[2020-10-04] MEDS: KETOROLAC TROMETHAMINE 15 MG/ML VIAL IV PRN ×2 (17:37→23:12)
[2020-10-04] MEDS: ALUMINUM/MAGNESIUM/SIMETH (MAALOX MAX) 30 ML UDC PO SCH ×2 (17:44→23:12)
[2020-10-04] MEDS ORDERED: ALUMINUM/MAGNESIUM/SIMETH (MAALOX MAX) 30 ML UDC PO SCH (18:00)
[2020-10-04] MEDS ORDERED: PROMETHAZINE HCL 12.5 MG in SODIUM CHLORIDE 0.9% 50 ML IV PRN (18:06)
[2020-10-04] MEDS ORDERED: NALOXONE HCL 0.4 MG/1 ML VIAL/CARP IV PRN (18:06)
[2020-10-04] MEDS ORDERED: TRAVOPROST Z 0.004% OPH SOLN 2.5 ML BTL OPB SCH (21:00)
[2020-10-05] MEDS: ACETAMINOPHEN 1,000 MG/100 ML VIAL IV SCH (01:25)
[2020-10-05] MEDS: ONDANSETRON INJ 2 MG/ML 2 ML VIAL IV SCH ×2 (01:26→08:06)
[2020-10-05] MEDS: NSS + 20MEQ KCL 20 MEQ/1,000 ML BAG IV SCH (05:43)
[2020-10-05] MEDS: FAMOTIDINE 20 MG in SYRINGE 3 ML IV SCH (05:44)
[2020-10-05] MEDS: cefTRIAXone SODIUM 1,000 MG in DEXTROSE 5% 50 ML IV SCH (05:44)
[2020-10-05] MEDS: ALUMINUM/MAGNESIUM/SIMETH (MAALOX MAX) 30 ML UDC PO SCH ×2 (05:44→12:58)
[2020-10-05 05:51] LABS: Basophils # (auto) 0.03 K/uL (0-0.2); Basophils % (auto) 0.4 %; Eosinophils # (auto) 0.48 K/uL (0-0.5); Eosinophils % (auto) 6.5 %; Hematocrit (blood only) 36.8 % (37-47); Hemoglobin 12.2 g/dL (12.0-16.0); Immature Granulocytes # (auto) 0.01 K/uL (0.00-0.02); Immature Granulocytes % (auto) 0.1 %; Lymphocytes # (auto) 2.53 K/uL (1.2-3.4); Lymphocytes % (auto) 34.1 %; Mean Corpuscular Hemoglobin 30.9 pg (25-34); Mean Corpuscular Hgb Conc 33.2 g/dL (32-36); Mean Corpuscular Volume 93.2 fL (80-100); Mean Platelet Volume 9.5 fL (7.4-10.4); Monocytes # (auto) 0.45 K/uL (0.11-0.59); Monocytes % (auto) 6.1 %; Neutrophils # (auto) 3.91 K/uL (1.4-6.5); Neutrophils % (auto) 52.8 %; Platelet Count 271 K/uL (130-400); RDW Coefficient of Variation 13.5 % (11.5-14.5); RDW Standard Deviation 46.3 fL (36.4-46.3); Red Blood Count 3.95 M/uL (4.2-5.4); White Blood Count 7.41 K/uL (4.8-10.8)
[2020-10-05 06:13] LABS: Albumin Level 2.7 gm/dl (3.4-5.0); Calcium 8.1 mg/dl (8.5-10.1); Creatinine Clr Calc Pharmacy 149.9 ml/min; Est GFR (African American) 138.4 ml/min; Est GFR (Non-African American) 119.4 ml/min
[2020-10-05 06:16] LABS: Albumin Globulin Ratio 0.9 (0.9-2); Bilirubin,Total 0.4 mg/dl (0.2-1); Globulin 3.2 gm/dl (2.5-4.0); Total Protein 5.9 gm/dl (6.4-8.2)
--- NOTE | 2020-10-05 07:50 | Gastrointestinal Consultation ---
Date of Consultation October 05, 2020 Assessment & Plan (1) Celiac disease: (2) Fever: (3) Abdominal pain: Differential Diagnosis: Pill induced esophagitis, PUD, Erosive esophagitis, Less likely Gall Bladder Recommend Pantoprazole 40 mg by mouth twice daily Start Carafate 10 ml by mouth four times daily for 10 days. Advance diet as tolerated NPO after midnight EGD in AM History of Present Illness Reason for Consultation: Abdominal pain Attending Physician: Jose Zacarias DO History of Present Illness Marah Xavier is a 40 yo female who presented to the ER yesterday, with severe epigastric pain. She stated that she had been ill for a few days prior to admission, with a temperature up to 102.2. She also developed arthralgias. As she spends a significant amount of time outside, she believed she may have a tick-borne illness, and started Doxycycline at that time. She did feel that one of the tablets did not clear her esophagus, and she developed the severe sub- sternal/epigastric pain thereafter. She states that the pain was 9/10 in intensity, radiating to her Right shoulder and was sharp and stabbing. She did have some relief with narcotic analgesics. In the ER, her liver panel was normal, as were her H/H. A CT scan of the Abd/pelvis did show some distal esophageal thickening, a small hiatal hernia, and a large fecal load in the colon. A RUQ US was normal. She was subsequently admitted and continued on Doxycycline. She was given Protonix [address] Royal of surgery did s ee her, and did not feel she had any acute surgical issues, but did request a HIDA scan. At the time I saw her, she was feeling much better. Her Lyme IgM did return positive. She states that she would like to try to eat something today. She continues to have epigastric pain, though much less, rated at 2/10 in intensity, non-radiating and without associated symptoms of nausea, vomiting or diarrhea. She has no further complaints. Allergies Allergy/AdvReac Type Severity Reaction Status Date / Time latex Allergy Severe ITCHY Verified 10/04/20 01:24 THROAT, SKIN BLISTERS - NO ANAPHYLAXIS tree nut Allergy Severe Anaphylaxis Verified 10/04/20 01:24 wheat Allergy Mild Unknown Verified 10/04/20 01:24 nickel AdvReac Unknown Verified 10/04/20 01:24 CURRENT EVAL FOR MILK ALLERGY Allergy Unknown UNKNOWN, Uncoded 10/04/20 01:24 CURRENT EVALUATION FOR Home Medications Medication Instructions Recorded Confirmed Type cetirizine 10 mg tablet 10 mg PO QAM 12/06/18 10/04/20 History epinephrine 0.3 mg/0.3 mL 0.3 mg IM Q10M PRN #0.3 ml 12/06/18 10/04/20 Rx injection, auto-injector aspirin 81 mg PO QAM 04/02/20 10/04/20 History fluoxetine 20 mg PO QAM 04/02/20 10/04/20 History levonorgestrel 20 mcg/24 hours (6 1 device INTRAUTERINE CONT 05/15/20 10/04/20 History yrs) 52 mg intrauterine device montelukast 10 mg tablet 10 mg PO QAM #30 tab 06/12/20 10/04/20 Rx cholecalciferol (vitamin D3) 25 mcg PO QAM 10/04/20 10/04/20 History [Vitamin D3] travoprost [Travatan Z] 1 drp OPB PM 10/04/20 10/04/20 History Patient History Medical History Anxiety and depression NO FORMAL DX, MED FOR AND CONTROLLED Asthma WELL CONTROLLED Celiac disease Central retinal vein occlusion HX OF 2008 , FLUCTUATING EYE PRESSURES - NO CURRENT EYE DROPS FOR Environmental allergies Kidney stone (06/30/12) HX OF Lyme disease DX NOV 2019 Seasonal allergies Surgical History H/O dilation and curettage 05/05/20, With Mirena placement by Dr. Weston H/O knee surgery ACL, RIGHT History of endoscopy History of foot surgery RIGHT History of oral surgery ROOT CANAL Previous section X2 [place] teeth removed Family History Other Breast cancer Hypertension Myocardial infarction Social History Smoking Status: Never smoker Second Hand Exposure: No; Hx Alcohol Use: Yes Hx Substance Use: No Preferred Language: Malawian Communication Ability: Effective Jig Bore Tool Maker Required: No Beliefs That Will Affect Care: None Current Living Situation: Spouse Current Living Situation Comment: HOME Feels Safe at Home: Yes Assistive Devices: None Review of Systems Review of Systems: All systems reviewed & are unremarkable except as noted in HPI & below Physical Exam Constitutional: WD/WN, vitals as above Eyes: + anicteric sclerae ENMT: external ear and nose normal, oropharynx normal Neck: trachea midline, no thyromegaly Respiratory: normal respiratory effort, lungs clear to auscultation Cardiovascular: RRR, no murmur, no edema Gastrointestinal (Abdomen): Inspection/Auscultation: abdomen normal to inspection and normal bowel sounds (hyperactive); abdomen not distended Percussion/Palpation: + abdomen tender (epigastric) and abdomen soft Skin: no rashes Psychiatric: A+Ox3, euthymic affect Results & Data ([facility]) Vital Signs (Past 12 Hours) Vital Signs Temp Pulse Resp BP Pulse Ox 10/05/20 07:25 36.8 C 87 16 126/78 98 10/04/20 22:50 36.7 C 72 16 113/68 93 PG Care Time/CCT Total # of Minutes Spent Total Time Spent with Patient: Total time spent is greater than 50% in coordination of care (as documented) at patient's floor/unit and/or counseling patient: Coding Level of Care Code 07187 Inpt Consult Level 4 Diagnoses Celiac disease K90.0 Fever R50.9 Abdominal pain R10.11 Abdominal location: right upper quadrant (1) Abdominal pain Abdominal location: right upper quadrant Qualified Code(s): R10.11 - Right upper quadrant pain
[2020-10-05] MEDS ORDERED: CETIRIZINE HCL 10 MG TABLET PO SCH (09:00)
[2020-10-05] MEDS ORDERED: MONTELUKAST SODIUM 10 MG TABLET PO SCH (09:00)
[2020-10-05] MEDS ORDERED: ACETAMINOPHEN 500 MG TAB PO PRN (09:13)
[2020-10-05] MEDS ORDERED: ONDANSETRON 4 MG OD TAB PO PRN (09:13)
[2020-10-05] MEDS ORDERED: oxyCODONE/ACETAMINOPHEN 5mg/325mg TAB PO PRN (09:13)
[2020-10-05] MEDS: FLUoxetine HCL 20 MG CAP PO SCH (09:15)
[2020-10-05] MEDS: PANTOprazole 40 MG TAB PO SCH (09:15)
[2020-10-05] MEDS: SUCRALFATE 1 GM/10 ML UDC PO SCH ×2 (09:59→12:55)
[2020-10-05] MEDS ORDERED: PROCHLORPERAZINE MALEATE 5 MG TAB PO SCH (12:00)
--- NOTE | 2020-10-05 12:13 | Surgery Progress Note ---
Date of Service October 05, 2020 Assessment & Plan (1) Abdominal pain: She is feeling much better today. Etiology of discomfort is still unclear. Because she developed some recurrent discomfort after swallowing Jell- O I think an upper GI source and especially esophageal may be the etiology. I doubt cholecystitis or even biliary colic at this time. There is no need for surgical intervention at this time. We will see how she does with more solid food and make further decisions. Admission and Anticipated Discharge Date Admission Date: October 04, 2020 Subjective Feels much much better today Has no pain at present When she swallowed some Jell-O she developed some of the retrosternal discomfort which then radiated towards the right side but it was fleeting. She had has had no nausea over the last 6 to 8 hours Physical Exam Constitutional: no acute distress Gastrointestinal (Abdomen): Inspection/Auscultation: normal bowel sounds; abdomen not distended Percussion/Palpation: abdomen soft; abdomen nontender Results & Data ([facility]) Vital Signs (Past 12 Hours) Vital Signs Temp Pulse Resp BP Pulse Ox 10/05/20 07:25 36.8 C 87 16 126/78 98 Laboratory Results 10/05/20 10/05/20 Range/Units 05:29 05:29 WBC 7.41 (4.8-10.8) K/uL RBC 3.95 L (4.2-5.4) M/uL Hgb 12.2 (12.0-16.0) g/dL Hct 36.8 L (37-47) % MCV 93.2 (80-100) fL MCH 30.9 (25-34) pg MCHC 33.2 (32-36) g/dL RDW Std Deviation 46.3 (36.4-46.3) fL RDW Coeff of Pranav 13.5 (11.5-14.5) % Plt Count 271 (130-400) K/uL MPV 9.5 (7.4-10.4) fL Immature Gran % (Auto) 0.1 % Neut % (Auto) 52.8 % Lymph % (Auto) 34.1 % [place] % (Auto) 6.1 % Eos % (Auto) 6.5 % Baso % (Auto) 0.4 % Neut # (Auto) 3.91 (1.4-6.5) K/uL Lymph # (Auto) 2.53 (1.2-3.4) K/uL [place] # (Auto) 0.45 (0.11-0.59) K/uL Eos # (Auto) 0.48 (0-0.5) K/uL Baso # (Auto) 0.03 (0-0.2) K/uL Immature Gran # (Auto) 0.01 (0.00-0.02) K/uL Sodium 139 (136-145) mmol/L Potassium 4.0 (3.5-5.1) mmol/L Chloride 110 H (98-107) mmol/L Carbon Dioxide 23 (21-32) mmol/L Anion Gap 6.0 (3-11) BUN 8 (7-18) mg/dl Creatinine 0.51 L (0.6-1.2) mg/dl Est Cr Clr Drug Dosing 149.9 ml/min Est GFR ( Amer) 138.4 ml/min Est GFR (Non-Af Amer) 119.4 ml/min BUN/Creatinine Ratio 15.0 (10-20) Glucose 81 (70-99) mg/dl Calcium 8.1 L (8.5-10.1) mg/dl Total Bilirubin 0.4 (0.2-1) mg/dl AST 12 L (15-37) U/L ALT 17 (12-78) U/L Alkaline Phosphatase 59 (45-117) U/L Total Protein 5.9 L (6.4-8.2) gm/dl Albumin 2.7 L (3.4-5.0) gm/dl Globulin 3.2 (2.5-4.0) gm/dl Albumin/Globulin Ratio 0.9 (0.9-2) (1) Abdominal pain Abdominal location: right upper quadrant Qualified Code(s): R10.11 - Right upper quadrant pain
[2020-10-05] MEDS: POLYETHYLENE (MIRALAX) 17 GM PACK PO SCH (12:53)
[2020-10-05] MEDS ORDERED: ONDANSETRON INJ 2 MG/ML 2 ML VIAL IV PRN (13:00)
--- NOTE | 2020-10-05 19:51 | Discharge Summary ---
Date of Service October 05, 2020 Admission HPI Per Admitting Provider The patient is a 40-year-old female with a past medical history including celiac disease, blindness in 1 eye, glaucoma, and allergic rhinitis. As noted above, she developed acute onset of right upper quadrant and epigastric abdominal discomfort after eating 2 slices of homemade pizza earlier this evening. Work-up in the emergency department included an ultrasound right upper quadrant which revealed the following: The gallbladder is partially distended with a normal thin wall, no stones, no surrounding fluid., Bile duct is nondilated measuring 4 mm. The liver measures 15.7 cm with normal echotexture. CT scan of abdomen and pelvis with contrast revealed the following: The appendix is normal. There is a moderate amount of stool in the cecum and right colon measuring 5-7 cm suggesting constipation. No other dilated bowel loops are present. No acute inflammatory changes are seen involving the bowel. The liver, gallbladder, pancreas, spleen, adrenal glands and kidneys appear within normal limits. There is a possible 4 cm left ovarian cyst. Laboratories reveal the following: CBC showed a WBC of 11.18 with left shift. Chemistry was normal except for albumin of 3.3. Urinalysis was negative. Urine test was negative. COVID-19 test was negative. Principal Diagnosis Lyme disease, doxycycline-induced esophagitis, colonic pain from constipation Discharge Exam In general she is awake and alert pleasant no distress. HEENT normocephalic atraumatic mucous membranes moist. Breathing unlabored no accessory muscle use good effort. Abdomen is soft nondistended nontender no guarding no rebound no rigidityeverything that was very tense and tender yesterday is now today nice and soft. No focal neuro deficits. Discharge Data Allergies Allergy/AdvReac Type Severity Reaction Status Date / Time latex Allergy Severe ITCHY Verified 10/04/20 01:24 THROAT, SKIN BLISTERS - NO ANAPHYLAXIS tree nut Allergy Severe Anaphylaxis Verified 10/04/20 01:24 wheat Allergy Mild Unknown Verified 10/04/20 01:24 nickel AdvReac Unknown Verified 10/04/20 01:24 CURRENT EVAL FOR MILK ALLERGY Allergy Unknown UNKNOWN, Uncoded 10/04/20 01:24 CURRENT EVALUATION FOR Consultations 10/04/20 01:03 ED Decision to Admit Stat 10/04/20 10:09 Consult General Surgery Routine 10/04/20 13:12 Consult Gastroenterology Routine Ordered Studies 10/03/20 22:57 US gallbladder Urgent 10/04/20 01:09 CT abd pelvis IV con only Urgent Hospital Course (1) Fever: Given high prevalence, as well as her being outside quite a bit/a lot of exposure to animals, [facility] that [facility] L[facility] screen IgM is a true positive, and I suspect that probably her fevers stopped because of the prompt initiation of doxycycline, however, given doxycycline-induced esophagitis, we will finish out a course of treatment with cefuroxime. (2) Abdominal pain: Initially harboring significant concern this was her gallbladderbased on her bedside presentation and clinical exam -Fortunately this was not the case. After further review, her GI symptoms seem to be a combination of doxycycline-induced esophagitis/gastritis, as well as abrupt worsening of what appears to been a subclinical chronic constipation -Improved with aggressive acid suppression and antiemetics, as well as bowel regimen -Stable for homeEGD tomorrow, twice daily PPI and H2 for the time being, slowly de-escalate. Ongoing as needed Zofran -Ongoing Carafate and Mylanta to coat her GI mucosa -Ongoing Mylanta and MiraLAX to work on bowel regimen. stable for home Total Time Total Time Spent Total Time Spent (In Minutes): >30 Discharge Plan Discharge Items Patient Disposition: Home - Self-Care Reason For Visit: INTRACTABLE ABDOMINAL PAIN Non-emergency contact: Primary Care Provider and Corporate General Manager Call non-emergency contact if: you have any medication questions, your symptoms worsen and you have a fever Follow-up/Referrals: Angelika Hughes DO [Primary Care Provider] - Diet: Gluten Free Addtl Attending Provider Instructions: abdominal pain/fevers/etc -after a lot of review, it really appears that your symptom complex was probably a combination of several things all playing off of eachother at once: lyme disease, doxycycline-induced esophagitis (and/or gastritis) and co nstipation/colon dilation. we'll work on each part of this to help you get back to good as new lyme -given how prevalent tick borne illness is around here, anytime someone has a fever in spring/summer/fall it's suspicious to be tick borne. from there, the two most common culprits are lyme or anaplasmosis, and now we're starting to see a small amount of babesiosis. all three can cause nonspecific symptoms like fevers/chills/malaise. lyme gets better with a lot of different antibiotics, lyme and anaplasmosis both get better with doxycycline, and babesiosis requires a whole different line of treatment (azithromycin and atovaquone) ---because your fevers went away with the doxycycline, it makes babesiosis highly unlikely to be the culprit. because your labs do not show tell-tale signs of anaplasmosis (like a low white count/platelets, or elevated liver enzymes) anaplasmosis is probably not at play. and while lyme screens can have lots of false positives, the clinical picture plus a positive screening for lyme makes it really probable that this is our culprit -fortunately this makes it fairly easy to treat. the doxycycline (and rocephin) you've already been on has started to get ahead of the problem, and we'll finish up a course of treatment with cefuroxime 500mg twice a day for another week (next dose tonight) esophagitis/possible gastritis -doxycycline can definitely cause a bad pill-induced esophagitis - and that is highly likely to be the main cause of your upper stomach pain and nausea -like we discussed, our GI tract has a limited array of signals it can send back to our central nervous system, so the stomach/esophagus mostly can send "dull ache, stabbing/spasm type pain/nausea" -- in that respect, once the esophagus was inflamed, anything that you put down it would trigger a pain response - creating what you were feeling -the main thing to get it to heal will be time, but we should be able to accelerate healing with acid suppression ---->for the next week to really try to get ahead of things, we'll have you take BOTH protonix (pantoprazole) twice a day and pepcid (famotidine) twice a day. after that, reduce to just the protonix (pantoprazole) twice a day for about 4 weeks (as we see what the scope shows, and see how you're doing, that will dictate better how long we have to be on the twice a day), and then likely daily for about 2 months after that (again, depending on the scope and how you're progressing) -additionally, for symptom control while things are really inflamed, we'll try to coat the esophagus and stomach with different medicines to act as a buffer: carafate (sucralfate) 10ml four times a day, and mylanta 15-30ml four times a day. for the next few days, take them both four times a day - because they coat the esophagus and then wash off, probably you'll get the most relief from taking one and alternating with the other a few hours apart (like taking the carafate at 8am, then the mylanta at 10am, carafate at noon, and so on). after 3-4 days "play" with both - some people feel better relief from one compared to the other. since they're really just there for symptom control, once you're feeling better and not really having discomfort/pain with eating, you can start to scale back -as we discussed, a reasonable "expected range" would be that you might heal fast enough that you don't need either in just a few days, and at the other end of the spectrum it might be that you need both for several weeks. as a "line in the sand" if you're still needing both by 4 weeks from now (say 11/06) then we will need people putting thought into why you're not better enough yet -for nausea, use the zofran (ondansetron) ODT (dissolving tablet) up to every 6 hours as needed for nausea constipation -based on the CT scan, you probably have been more chronically constipated than you ever realized. this is actually fairly common. typically what happens is that people sort of "get used" to having a bit more distended colon and then the nerves that dictate "stretch-recoil" get a bit more used to being stretched, and things get slowly backed up. for a lot of people, because it's such a slow and chronic process, they really don't notice/feel constipated, and because stool is still moving through and people still have bowel movements, chronic constipation isn't even really "on your radar" -typically then, people reach a tipping point. because the [id number] nervous system slows our bowels even more, frequently that tipping point comes with physical or emotional stress (or both) -- at that point usually abdominal pain ensues because the colon gets even more stretched than it is used to -for you, because of dealing with some degrees of chronic GI distress with the celiac, this easily could have been smoldering for a long time - and when your belly was feeling "off" it would be easy to chalk it up to celiac related distress. it's quite possible that some bad days with your abdomen actually could have been from this constipation predominant IBS picture "hiding in the background" -since you're feeling so much better, we don't need to do anything really aggressive (like a bowel prep) - but definitely will want to keep moving towards getting your bowels moving more/more regularly -for the short term - the mylanta (because it has so much magnesium) will definitely help to get things moving, and i would have you continue to take the miralax (polyethylene glycol) three times a day. do this for the next few days or so -- basically until it's clear that you've really had a good deal of bowel movements and things are starting to clear -from there, i'd recommend doing a small, but regular, dose of miralax for a while -- figuring that way we can "reset" the stretch-recoil mechanism so that your colon starts to get more adapted to a regular load, instead of being "used" to a lot more stool hiding in there. something on the order of one dose of miralax (17g, a capful) once a day for several months, and then reduce it to just as needed, should do well to help reset things. as you're doing that, you'll also be able to hopefully start to tease apart symptoms so that you have a better feel for what is celiac related vs what is constipation/fecal load related. Pending Studies at Discharge: Yes Stand-Alone Forms: My [facility] Punchd, Smoking Cessation Medications and DC Order Prescriptions: New pantoprazole 40 mg tablet,delayed release (DR/EC) 40 mg PO BID Qty: 60 RF: 0 famotidine [Pepcid] 20 mg tablet 20 mg PO BID Qty: 14 RF: 0 ondansetron 4 mg tablet,disintegrating 4 mg PO Q6H PRN (Reason: nausea and vomiting) Qty: 30 RF: 0 cefuroxime axetil 500 mg tablet 500 mg PO BID 7 Days Qty: 14 RF: 0 sucralfate [Carafate] 100 mg/mL suspension 1 g PO ACHS 28 Days Qty: 280 RF: 0 Continued Mirena 20 mcg/24 hours (6 yrs) 52 mg intrauterine device 1 device intrauterine CONT RF: 0 montelukast 10 mg tablet 10 mg PO QAM Qty: 30 RF: 5 epinephrine 0.3 mg/0.3 mL auto-injector 0.3 mg IM Q10M PRN (Reason: bronchodilation) Qty: 0.3 RF: 0 cetirizine [Zyrtec] 10 mg tablet 10 mg PO QAM RF: 0 aspirin 81 mg Tablet,Delayed Release (Dr/Ec) 81 mg PO QAM RF: 0 fluoxetine 20 mg Capsule 20 mg PO QAM RF: 0 cholecalciferol (vitamin D3) [Vitamin D3] 25 mcg (1,000 unit) Tablet 25 mcg PO QAM RF: 0 travoprost [Travatan Z] 0.004 % Drops 1 drp OPB PM RF: 0 Discharge Orders: Discharge Order (Routine); Ordered 10/05/20 Ordered By: Jose Chilel/Other Patient Handouts: Tick Bites Admission Data Admit Date/Time: 10/04/20 02:52 Attending Provider: Jose Zacarias Admit Provider: Arvind Irvin Primary Care Provider: Angelika Hughes Other Providers: Arvind Irvin ; Jn Royal ; Bernardo Bell. Other Interventions: Discharge Summary Assessment (RN) Last Done: 10/05/20 13:40 Coding Level of Care Code D/C Day Management >30 mins Diagnoses Fever R50.9 Abdominal pain R10.11 Abdominal location: right upper quadrant
[2020-10-05] MEDS ORDERED: cefUROXime axetil 500 MG TAB PO SCH (21:00)
[2020-10-05] MEDS ORDERED: FAMOTIDINE 20 MG TAB PO SCH (21:00)
[2020-10-09 16:31] LABS: 18KDIGG Band NON-REACTIVE; 23KDIGG Band NON-REACTIVE; 23KDIGM Band REACTIVE; 28KDIGG Band NON-REACTIVE; 30KDIGG Band NON-REACTIVE; 39KDIGG Band REACTIVE; 39KDIGM Band NON-REACTIVE; 41KDIGG Band REACTIVE; 41KDIGM Band NON-REACTIVE; 45KDIGG Band NON-REACTIVE; 58KDIGG Band REACTIVE; 66KDIGG Band NON-REACTIVE; 93KDIGG Band NON-REACTIVE; Lyme Antibodies, WB IgG NEGATIVE (NEGATIVE); Lyme Antibodies, WB IgM NEGATIVE (NEGATIVE)
== END 2020-10-05 14:39 | disposition home or self-care (01) | DRG 392 ==
LOC: ED 22:38 → INTOOBSV 10-04 02:52 → SUATTDRO 10-04 02:52 → 3E 10-04 02:52